=== PATIENT | male | born 1950 | race Caucasian/White ===

== ENCOUNTER → 2019-02-14 11:03 | Outpatient (CLI) | payer MEDICARE, SELFPAY ==
[2019-02-14 12:41] LABS: Add Manual Diff / Slide Review NO; Basophils Absolute Auto 100 /uL (0-100); Eosinophils Absolute Auto 300 /uL (0-450); Eosinophils Percent Auto 5.4 % (2-4); Hematocrit 44.8 % (41-53); Hemoglobin 14.8 g/dL (13.5-17.5); Lymphocytes Absolute Auto 1500 /uL (1100-4500); Lymphocytes Percent Auto 25.9 % (25-40); Mean Corpuscular Hemoglobin 29.4 PG (26-34); Mean Corpuscular Volume 89.2 fL (80-100); Monocytes Absolute Auto 500 /uL (0-900); Monocytes Percent Auto 9.1 % (3-14); Neutrophils Absolute Auto 3400 /uL (1500-7000); Neutrophils Percent Auto 58.6 % (50-75); Platelet Count 210 X10^3/uL (150-400); Red Blood Cell Count 5.02 X10^6/uL (4.5-5.9); Red Cell Distribution Width 14.6 % (11.6-14.8); White Blood Cell Count 5.8 X10^3/uL (4.5-11.0)
[2019-02-14 12:59] LABS: Alanine Aminotransferase 47 IU/L (21-72); Albumin 4.3 g/dL (3.5-5.0); Albumin Globulin Ratio 1.4 (1.0-2.8); Alkaline Phosphatase 88 U/L (38-126); Aspartate Aminotransferase 45 IU/L (17-59); Bilirubin Total 0.8 mg/dL (0.2-1.3); Blood Urea Nitrogen 25 mg/dL (9-20); Calcium 9.4 mg/dL (8.4-10.2); Carbon Dioxide 30 mmol/L (22-32); Chloride 105 mmol/L (98-107); Cholesterol 204 mg/dL (140-199); Estimated Glomerular Filt Rate > 60.0 mL/min (>60); Globulin 3.1 g/dL (1.7-4.1); Glucose 105 mg/dL (80-110); HDL Cholesterol 52 mg/dL (40-60); HEMOLYSIS 19 (0-50); LDL Cholesterol Calculated 133 mg/dL (<100); Potassium 4.5 mmol/L (3.4-5.1); Sodium 141 mmol/L (137-145); Total Protein 7.4 g/dL (6.3-8.2); Triglycerides 96 mg/dL (35-150)
[2019-02-14 13:23] LABS: Thyroid Stimulating Hormone 2.07 uIU/mL (0.47-4.68)
[2019-02-14 13:24] LABS: Prostate Specific Antigen Scrn 0.513 ng/mL (0.1-4.0)
== END ==
PROVIDERS: PCP Family Medicine; Visit Provider Family Medicine
DX: E78.2 Mixed hyperlipidemia (principal); Z12.5 Encounter for screening for malignant neoplasm of prostate
CPT/HCPCS: 36415; 80053; 80061; 84443; 85025; G0103

== ENCOUNTER → 2019-05-19 10:06 | Outpatient (CLI) | payer MEDICARE, SELFPAY ==
[2019-05-19 11:49] LABS: Cortisol Random 6.52 ug/dL
[2019-05-20 16:10] LABS: Adrenocorticotropic Hormone 15 pg/mL (6-50)
== END ==
PROVIDERS: PCP Family Medicine; Visit Provider Family Medicine
DX: R53.1 Weakness (principal)
CPT/HCPCS: 36415; 82024; 82533; 84403

== ENCOUNTER 2020-04-06 10:04 | Emergency (ER) | payer MEDICARE, BC, SELFPAY ==
[2020-04-06] VITALS (11 sets, daily range): BP systolic 144–152; BP diastolic 66–82; PULSE 69–110; RESP 14–28; TEMP 36.9; O2SAT 97–99; BMI 27.2
--- NOTE | 2020-04-06 10:40 | PC.NURSE ---
Pt had dental work 8 days ago,yesterday increased pain,followed up with dentist,told he needs a root canal and has a possible infection. 1500 yesterday pts left 1/2 of bottom lip became numb.
[2020-04-06 10:52] LABS: Add Manual Diff / Slide Review NO; Basophils Absolute Auto 0 /uL (0-100); Basophils Percent Auto 0.5 % (0-2); Eosinophils Absolute Auto 100 /uL (0-450); Eosinophils Percent Auto 0.7 % (2-4); Hematocrit 41.2 % (41-53); Hemoglobin 13.7 g/dL (13.5-17.5); Lymphocytes Absolute Auto 1100 /uL (1100-4500); Lymphocytes Percent Auto 12.1 % (25-40); Mean Corpuscular HGB Conc 33.2 % (30-36); Mean Corpuscular Hemoglobin 29.4 PG (26-34); Mean Corpuscular Volume 88.5 fL (80-100); Monocytes Absolute Auto 1200 /uL (0-900); Monocytes Percent Auto 13.3 % (3-14); Neutrophils Absolute Auto 6400 /uL (1500-7000); Neutrophils Percent Auto 73.4 % (50-75); Platelet Count 188 X10^3/uL (150-400); Red Blood Cell Count 4.65 X10^6/uL (4.5-5.9); Red Cell Distribution Width 14.6 % (11.6-14.8); White Blood Cell Count 8.7 X10^3/uL (4.5-11.0)
[2020-04-06 10:58] LABS: INR 1.1 (0.9-1.3); Prothrombin Time 12.4 SECONDS (10.1-12.7)
[2020-04-06 11:01] LABS: PTT Partial Thromboplastin Tim 28 SECONDS (26.4-36.2)
[2020-04-06 11:02] LABS: BUN Creatinine Ratio 23.4 (6-22); Blood Urea Nitrogen 22 mg/dL (9-20); Carbon Dioxide 22 mmol/L (22-32); Chloride 106 mmol/L (98-107); Creatine Kinase 173 U/L (55-170); Estimated Glomerular Filt Rate > 60.0 mL/min (>60); Glucose 131 mg/dL (80-110); HEMOLYSIS < 15 (0-50); Potassium 3.3 mmol/L (3.4-5.1); Sodium 136 mmol/L (137-145)
[2020-04-06 11:13] LABS: Troponin I < 0.012 ng/mL (0.01-0.034)
[2020-04-06 11:16] LABS: CKMB % Relative Index 1.5 % (1.5-5.0); Creatine Kinase MB 2.56 ng/mL (<2.37)
[2020-04-06 11:33] LABS: Thyroid Stimulating Hormone 2.55 uIU/mL (0.47-4.68)
--- NOTE | 2020-04-06 12:09 | ED_ITS ---
HPI - Dental/Oral General Chief complaint: Dental/Oral Stated complaint: HEAD PAIN,NUMBNESS ON LOWER LIP Time Seen by Provider: 04/06/20 10:50 Source: patient Mode of arrival: Ambulatory Limitations: no limitations History of Present Illness HPI Narrative: This is a pleasant 69-year-old male who comes emergency depa rtment with complaint of some facial numbness on the left. Patient states that he had a filling the tooth had broken. He went to the dental clinic at [facility] had evaluation they but a filling in but then he continued to have symptoms and they have recommended a root canal secondary to an infection they noted on xray imaging, he has not had the root canal yet. He has not appreciated any fevers, he is not appreciate any swelling. Yesterday he noticed some numbness of the cheek and lower jaw area. He also has noted that the pain in the lower jaw has now started to spread up towards the cheek and left ear. He has been in quite a bit of pain over the last several days. They have tried ibuprofen and Tylenol [id number] as well as heat for the area. And his states that she thought she appreciated some twisting or change to the facial movement on that area. He does have a prior history of stroke, he is on metoprolol, lisinopril and atorvastatin. He is not currently on any blood thinners. No history of diabetes. He has not had any changes with vision, no speech issues. He has had some headache. He has not any nausea vomiting or GI or new urinary symptoms. He has a remote history of cigar use, occasional alcohol and no illicit. Dr. Nguyen is his primary care. He is accompanied by his . Related Data Previous Rx's Medication Instructions Recorded atorvastatin 20 mg tablet 20 mg PO DAILY #90 tab 02/14/19 bupropion HCl 150 mg tablet,12 hr See Rx Instructions .ROUTE 02/14/19 sustained-release .COMPLEX #60 tablet metoprolol succinate 25 mg 25 mg PO BID #180 tab 02/14/19 tablet,extended release 24 hr oxycodone 5 mg PO Q6H PRN #10 tab 04/06/20 penicillin V potassium 500 mg PO QID #40 tab 04/06/20 Allergies Allergy/AdvReac Type Severity Reaction Status Date / Time No Known Drug Allergies Allergy Verified 04/06/20 10:22 Review of Systems Review of Systems ROS Unobtainable: All systems reviewed & are unremarkable except as noted in HPI and below Patient History Medical History Aphthous ulcer of tongue Cardiac arrhythmia Hearing loss Seasonal allergies Shoulder pain (~2011) Tinnitus Family History Father Stroke Heart disease Grandmother Dementia Mother Alzheimer's disease Social History Smoking Status: Former smoker Smoking Status: Former smoker alcohol intake frequency: holidays/special occasions only Substance Use Type: does not use Exam Narrative Exam Narrative: GEN: well nourished, well appearing male, alert and oriented x 3, patient appears to be in mild distress. HEENT: Atraumatic, pupils are equal round reactive to light, extraocular movements are intact, nares are clear, TMs are clear with no fluid, there is no conjunctival pallor. Throat is clear without any exudates, erythema, tonsillar enlargement or uvular deviation, patient does not have any appreciable facial droop, no dysarthria. He does not have any nystagmus. He does not have any obvious swelling. He has multiple fillings. There is a tooth missing in the area of pain but no obvious infection on exam. Patient is mildly tender over the lower jaw and just above. There is no warmth to the area. There is no fluctuance or induration. HEART: Regular rate and rhythm without murmur, clicks, rubs. LUNGS:Lungs clear to auscultation, no wheezes, rales, crackles, chest moves symmetrically ABD:bowel sounds normal, soft, non-tender, no guarding, rebound, rigidity, no masses noted, no hepatosplenomegaly MSCL: Non-tender, no muscle atrophy, muscles strength 5/5 upper and lower extremities, full range of motion, normal gait NEURO:CN 2-12 intact, sensation normal, reflexes 2/4 upper and lower extremities. finger nose finger test normal, heel garcia test normal Initial Vital Signs Initial Vital Signs: Vital Signs Blood Pressure 144/66 H 04/06/20 10:18 Scores GCS Madeline coma scale eye opening: Spontaneous [place] coma scale verbal response: Orientated [place] coma scale motor response: Obey commands Houston coma scale total score: 15 NIH Stroke Scale Level of Conciousness: Alert, keenly responsive Ask month/age: Answers both questions correctly. Open/close eyes, close hand: Performs both tasks correctly Best gaze horizontal: Normal Visual hu: No visual loss Facial palsy: Normal symetrical movement Left arm drift: No drift for full 10 sec Right arm drift: No drift for full 10 sec Left leg drift: No drift for full 5 sec Right leg drift: No drift for full 5 sec Limb ataxia: Absent Sensory on face/arms/legs: Normal, no sensory loss Best language: No aphasia, normal Dysarthria: Normal Extinction or inattention: No abnormality Total NIH Stroke scale score: 0 Course Orders Ordered: ED Orders 04/06/20 10:29 EKG-12 Lead Routine 04/06/20 10:34 Basic Metabolic Panel Stat Complete Blood Count AUTO DIFF Stat Magnesium Stat Partial Thromboplastin Time Stat Prothrombin Time INR Stat Thyroid Stimulating Hormone Stat Troponin & CK Cardiac Panel Stat 04/06/20 12:34 CT facial bones w con Stat 04/06/20 12:45 CT head/brain wo con Stat Discontinued Medications Sodium Chloride (Normal Saline 0.9%) 1,000 mls @ 500 mls/hr IV BOLUS ONE Stop: 04/06/20 14:33 Last Infusion: 04/06/20 13:50 Dose: 0 mls/hr Documented by: Admin: 04/06/20 12:47 Dose: 500 mls/hr Documented by: ALOK Ketorolac Tromethamine (Ketorolac 60 Mg/2 Ml Vial) 15 mg IV NOW ONE Stop: 04/06/20 12:35 Last Admin: 04/06/20 12:47 Dose: 15 mg Documented by: ALOK Potassium Chloride (Potassium Chloride 20 Meq/15 Ml Udc) 40 meq PO NOW ONE Stop: 04/06/20 12:12 Last Admin: 04/06/20 12:48 Dose: 40 meq Documented by: ALOK Vital Signs Vital signs: Vital Signs - 8 hr 04/06/20 11:30 04/06/20 12:00 04/06/20 12:14 Pulse Rate 74 77 78 Respiratory Rate 24 21 22 Blood Pressure 152/82 H Pulse Oximetry 97 98 98 04/06/20 12:30 04/06/20 13:03 04/06/20 13:30 Pulse Rate 79 110 H 80 Respiratory Rate 22 27 H Blood Pressure Pulse Oximetry 98 99 04/06/20 13:43 04/06/20 13:48 Pulse Rate 88 75 Respiratory Rate 25 H 28 H Blood Pressure 145/66 H Pulse Oximetry 99 MDM - Dental/Oral Lab Data Attestation: I reviewed the patient's lab results. Result diagrams: 04/06/20 10:34 04/06/20 10:34 Labs: Lab Results 04/06/20 04/06/20 04/06/20 Range/Units 10:34 10:34 10:34 WBC 8.7 (4.5-11.0) X10^3/uL RBC 4.65 (4.5-5.9) X10^6/uL Hgb 13.7 (13.5-17.5) g/dL Hct 41.2 (41-53) % MCV 88.5 (80-100) fL MCH 29.4 (26-34) PG MCHC 33.2 (30-36) % RDW 14.6 (11.6-14.8) % Plt Count 188 (150-400) X10^3/uL Neut % (Auto) 73.4 (50-75) % Lymph % (Auto) 12.1 L (25-40) % Camp % (Auto) 13.3 (3-14) % Eos % (Auto) 0.7 L (2-4) % Baso % (Auto) 0.5 (0-2) % Neut # (Auto) 6400 (3031-4867) /uL Lymph # (Auto) 1100 (8444-8575) /uL Camp # (Auto) 1200 H (0-900) /uL Eos # (Auto) 100 (0-450) /uL Baso # (Auto) 0 (0-100) /uL PT 12.4 (10.1-12.7) SECONDS INR 1.1 (0.9-1.3) APTT 28 (26.4-36.2) SECONDS Sodium 136 L (137-145) mmol/L Potassium 3.3 L (3.4-5.1) mmol/L Chloride 106 (98-107) mmol/L Carbon Dioxide 22 (22-32) mmol/L BUN 22 H (9-20) mg/dL Creatinine 0.94 (0.66-1.25) mg/dL Estimated GFR > 60.0 (>60) mL/min BUN/Creatinine Ratio 23.4 H (6-22) Glucose 131 H (80-110) mg/dL Calcium 9.0 (8.4-10.2) mg/dL Magnesium 2.0 (1.6-2.3) mg/dL Total Creatine Kinase 173 H (55-170) U/L CK-MB (CK-2) 2.56 H (<2.37) ng/mL CK-MB (CK-2) Rel Index 1.5 (1.5-5.0) % Troponin I < 0.012 (0.01-0.034) ng/mL TSH (0.47-4.68) uIU/mL 04/06/20 Range/Units 10:34 WBC (4.5-11.0) X10^3/uL RBC (4.5-5.9) X10^6/uL Hgb (13.5-17.5) g/dL Hct (41-53) % MCV (80-100) fL MCH (26-34) PG MCHC (30-36) % RDW (11.6-14.8) % Plt Count (150-400) X10^3/uL Neut % (Auto) (50-75) % Lymph % (Auto) (25-40) % Camp % (Auto) (3-14) % Eos % (Auto) (2-4) % Baso % (Auto) (0-2) % Neut # (Auto) (6618-2130) /uL Lymph # (Auto) (1519-2260) /uL Camp # (Auto) (0-900) /uL Eos # (Auto) (0-450) /uL Baso # (Auto) (0-100) /uL PT (10.1-12.7) SECONDS INR (0.9-1.3) APTT (26.4-36.2) SECONDS Sodium (137-145) mmol/L Potassium (3.4-5.1) mmol/L Chloride (98-107) mmol/L Carbon Dioxide (22-32) mmol/L BUN (9-20) mg/dL Creatinine (0.66-1.25) mg/dL Estimated GFR (>60) mL/min BUN/Creatinine Ratio (6-22) Glucose (80-110) mg/dL Calcium (8.4-10.2) mg/dL Magnesium (1.6-2.3) mg/dL Total Creatine Kinase (55-170) U/L CK-MB (CK-2) (<2.37) ng/mL CK-MB (CK-2) Rel Index (1.5-5.0) % Troponin I (0.01-0.034) ng/mL TSH 2.55 (0.47-4.68) uIU/mL Imaging Data CT scan - head: Radiologist's Impression: [address] [id number] Scan ReportSigned Patient: Dean Fonseca GMR#: [id number]: 1950cct:[id number]/Sex: 69 / MDate of Service: 04/06/20Loc: EDAccession Number: [id number] Procedure: CT head/brain wo con Ordering Provider: Nicolle Kyle D.O. PROCEDURE: CT HEAD/BRAIN WO CON INDICATIONS: numbness lower face TECHNIQUE: Noncontrast 4.5 mm thick angled axial sections acquired from the foramen magnum to the vertex, with coronal and sagittal reformats. For radiation dose reduction, the following was used: automated exposure control, adjustment of mA and/or kV according to patient size. COMPARISON: None. FINDINGS: Image quality: Excellent. CSF spaces: Basal cisterns are patent. No extra-axial fluid collections. Ventricles are normal in size and shape. Brain: No midline shift. No intracranial masses or hemorrhage. Chavez-white matter interface is normal. Skull and face: Calvarium and visualized facial bones are intact, without suspicious lesions. Sinuses: Visualized sinuses and mastoids are clear. IMPRESSION: No acute disease. Normal for age. Dictated by: Jin Bailon M.D. on 04/06/2020 at 13:06 Approved by: Jin Bailon M.D. on 04/06/2020 at 13:07 facial bones: Radiologist's Impression: Dean Fonseca 69 M [address] [id number] Scan ReportSigned Patient: Dean Fonseca GMR#: [id number]: 2Acct:[id number]/Sex: 69 / MDate of Service: 04/06/20Loc: EDAccession Number: [id number] Procedure: CT facial bones w con Ordering Provider: Nicolle Kyle D.O. PROCEDURE: CT FACIAL BONES W CON INDICATIONS: dental infection, no swelling but new numbness TECHNIQUE: After the administration of intravenous contrast, 2.5 mm axial sections acquired from the mid-neck to the frontal sinuses, with coronal and sagittal reformats. For radia tion dose reduction, the following was used: automated exposure control, adjustment of mA and/or kV according to patient size. COMPARISON: None. FINDINGS: Image quality: Excellent. Soft tissues: No edema, masses, or fluid collections. No enlarged lymph nodes. Vascular: Visualized vascular structures appear patent throughout. Bony vascular foramina and canals appear normal. Bones: Facial bones appear intact, without fractures, erosions, or destruction. Visualized portions of the skull base and auditory canals also appear normal. Sinuses: Paranasal sinuses are aerated without fluid levels, mucosal thickening, or mucoceles. Mastoid air cells are aerated. IMPRESSION: No enlarged lymph nodes seen, no abnormal soft tissue fluid collection is found. Please note that metal artifact from the mandibular and maxillary dental work reduces quality of visualization in exactly the area of current clinical concern. Pattern Luis dental films may be warranted depending on the clinical status. Dictated by: Jin Bailon M.D. on 04/06/2020 at 13:07 Approved by: Jin Bailon M.D. on 04/06/2020 at 13:09 ECG Data Attestation: I personally reviewed and interpreted this ECG as follows: Prior ECG tracings: available for review Interpretation: Sinus rhythm with frequent PVCs CEAs, left axis deviation. Rate of 76, MA 182, QRS of 134 and QTC of 486. Nonspecific change. Patient has prior EKG from July of 2016 which also has multiple frequent PVCs similar to today's pattern. MDM Narrative Medical decision making narrative: in with some numbness of his lip and pain on his lower jaw. Patient has had recent dental intervention and is is being scheduled for a root canal. He has tried Tylenol and ibuprofen with minimal improvement as well as Ayden intermittent. He has had a prior stroke so imaging was obtained of his facial bones as well as head CT, labs do show a mild hypokalemia and patient had this replaced in the emergency department. He has been told that he has a dental infection but that he was not recommended to put on antibiotics but just to have the root canal. NIH is 0 with no other neurologic changes I suspect this may be related to his recent intervention and patient was given a prescription for oxycodone, penicillin VK and plan to follow up with his dental team at [facility]. He was asked to return if he has any other neurologic symptoms or changes, Discharge Plan Departure Patient Disposition: Home Clinical Impression: Numbness of lip Activity Restrictions/Additional Instructions: Follow-up with your dental team for your root canal. Take pain medication as prescribed, this medication can make you sleepy do not drive, perform hazardous activities or make any major decisions while taking them. You may take tylenol with this medication. You may take up to 1000 mg every 8 hours as needed. Take antibiotics until gone. Prescription sent to [facility] in [place]. Return to the ER for fevers, severe headaches, new vision changes, new facial droop, difficulty with speech, new weakness numbness or tingling, increasing swelling of the face, swelling of the tongue or airway or other new or concernin g symptoms. Prescriptions: New penicillin V potassium 500 mg tablet 500 mg PO QID Qty: 40 RF: 0 oxycodone 5 mg tablet 5 mg PO Q6H PRN (Reason: pain) Qty: 10 RF: 0 No Action atorvastatin 20 mg tablet 20 mg PO DAILY Qty: 90 RF: 3 metoprolol succinate [Toprol XL] 25 mg tablet extended release 24 hr 25 mg PO BID Qty: 180 RF: 3 bupropion HCl 150 mg tablet sustained-release 12 hr See Rx Instructions .ROUTE .COMPLEX Qty: 60 RF: 5 Referrals: Wili Nguyen MD [Primary Care Provider] - Stand Alone Forms: Work Release Note
--- NOTE | 2020-04-06 12:34 | DI.CT.S_ITS ---
PROCEDURE: CT FACIAL BONES W CON INDICATIONS: dental infection, no swelling but new numbness TECHNIQUE: After the administration of intravenous contrast, 2.5 mm axial sections acquired from the mid-neck to the frontal sinuses, with coronal and sagittal reformats. For radiation dose reduction, the following was used: automated exposure control, adjustment of mA and/or kV according to patient size. COMPARISON: None. FINDINGS: Image quality: Excellent. Soft tissues: No edema, masses, or fluid collections. No enlarged lymph nodes. Vascular: Visualized vascular structures appear patent throughout. Bony vascular foramina and canals appear normal. Bones: Facial bones appear intact, without fractures, erosions, or destruction. Visualized portions of the skull base and auditory canals also appear normal. Sinuses: Paranasal sinuses are aerated without fluid levels, mucosal thickening, or mucoceles. Mastoid air cells are aerated. IMPRESSION: No enlarged lymph nodes seen, no abnormal soft tissue fluid collection is found. Please note that metal artifact from the mandibular and maxillary dental work reduces quality of visualization in exactly the area of current clinical concern. Pattern Luis dental films may be warranted depending on the clinical status. Dictated by: Jin Bailon M.D. on 04/06/2020 at 13:07 Approved by: Jin Bailon M.D. on 04/06/2020 at 13:09
--- NOTE | 2020-04-06 12:45 | DI.CT.S_ITS ---
PROCEDURE: CT HEAD/BRAIN WO CON INDICATIONS: numbness lower face TECHNIQUE: Noncontrast 4.5 mm thick angled axial sections acquired from the foramen magnum to the vertex, with coronal and sagittal reformats. For radiation dose reduction, the following was used: automated exposure control, adjustment of mA and/or kV according to patient size. COMPARISON: None. FINDINGS: Image quality: Excellent. CSF spaces: Basal cisterns are patent. No extra-axial fluid collections. Ventricles are normal in size and shape. Brain: No midline shift. No intracranial masses or hemorrhage. Chavez-white matter interface is normal. Skull and face: Calvarium and visualized facial bones are intact, without suspicious lesions. Sinuses: Visualized sinuses and mastoids are clear. IMPRESSION: No acute disease. Normal for age. Dictated by: Jin Bailon M.D. on 04/06/2020 at 13:06 Approved by: Jin Bailon M.D. on 04/06/2020 at 13:07
[2020-04-06] MEDS: SODIUM CHLORIDE 0.9% 1,000 ML 500 ML IV (12:47)
[2020-04-06] MEDS: KETOROLAC 60 MG/2 ML VIAL 15 MG IV (12:47)
[2020-04-06] MEDS: POTASSIUM CHLORIDE 20 MEQ/15 ML UDC 40 MEQ PO (12:48)
== END 2020-04-06 14:10 | disposition home or self-care (01) ==
PROVIDERS: Emergency Provider Emergency Medicine; PCP Family Medicine
DX: R20.0 Anesthesia of skin (principal); K08.89 Other specified disorders of teeth and supporting structures; E87.6 Hypokalemia; R51.9 Headache, unspecified
CPT/HCPCS: 36415; 70450; 70487; 80048; 82550; 82553; 83735; 84443; 84484; 85025; 85610; 85730; 93005; 96361; 96374; 99284; J1885; Q9967

== ENCOUNTER 2020-04-08 17:12 | Emergency (ER) | payer MEDICARE, BC, SELFPAY ==
[2020-04-08] VITALS (12 sets, daily range): BP systolic 133–166; BP diastolic 60–78; PULSE 39–86; RESP 15–29; TEMP 37.9; O2SAT 99–100; BMI 27.2
--- NOTE | 2020-04-08 21:37 | ED_ITS ---
HPI - Dental/Oral General Chief complaint: Dental/Oral Stated complaint: Infection in mouth, seen Sunday, not getting bett Time Seen by Provider: 04/08/20 21:36 Source: patient Mode of arrival: Ambulatory Limitations: no limitations History of Present Illness HPI Narrative: 61-year-old male former smoker with a history of hypertension and poor dental history presents with a chief complaint of some increased swelling and pain adjacent to tooth that received recent attention from a dentist. He had a cleaning and some fillings and other procedures at the [facility] about 10 days ago and was seen here for some pain and swelling and placed on amoxicillin a few days ago. He has increased swelling and some fluctuance adjacent to left lower molars. He has minimal facial swelling. He denies any difficulty swallowing and has had no systemic findings such as fever, chills nor nausea or vomiting. Teeth map: 1. Onset (ago): hour(s) Duration: constant Severity: moderate Relieving factors: nothing Exacerbating factors: chewing Context: history of dental caries and poor dental care Associated symptoms: gum swelling Treatment prior to arrival: other Related Data Previous Rx's Medication Instructions Recorded atorvastatin 20 mg tablet 20 mg PO DAILY #90 tab 02/14/19 bupropion HCl 150 mg tablet,12 hr See Rx Instructions .ROUTE 02/14/19 sustained-release .COMPLEX #60 tablet metoprolol succinate 25 mg 25 mg PO BID #180 tab 02/14/19 tablet,extended release 24 hr oxycodone 5 mg PO Q6H PRN #10 tab 04/06/20 penicillin V potassium 500 mg PO QID #40 tab 04/06/20 amoxicillin-pot clavulanate 1 tab PO Q12H #20 tab 04/08/20 [Augmentin] Allergies Allergy/AdvReac Type Severity Reaction Status Date / Time No Known Drug Allergies Allergy Verified 04/08/20 17:24 Review of Systems Constitutional Constitutional: Denies chills, Denies fatigue, Denies fever(s), Denies frequent falls, Denies lethargy and Denies weakness Eyes Eyes: Denies change in vision, Denies eye discharge, Denies irritation and Denies loss of vision ENT Ears, Nose, Mouth, and Throat: Denies change in voice, Reports dental pain, Denies dizziness, Reports facial pain, Denies neck pain, Denies sore throat and Denies throat swelling Cardiovascular Cardiovascular: Denies chest pain, Denies irregular heart rhythm, Denies lightheadedness, Denies palpitations, Denies dyspnea, Denies dyspnea on exertion and Denies orthopnea Respiratory Respiratory: Denies cough, Denies dyspnea, Denies dyspnea on exertion and Denies wheezing Gastrointestinal Gastrointestinal: Denies abdominal pain, Denies change in bowel habits, Denies diarrhea, Denies nausea and Denies vomiting Musculoskeletal Musculoskeletal: Denies neck pain and Denies numbness Integumentary/Breasts Skin/Breast: Denies pruritus, Denies erythema, Denies rash and Denies wounds Neurologic Neurologic: Denies behavioral changes, Denies confusion, Denies dizziness, Denies frequent falls, Denies loss of vision, Denies numbness and Denies weakness Psychiatric Psychiatric: Denies anxiety, Denies behavioral changes, Denies confusion, Denies depression, Denies homicidal ideation and Denies suicidal ideation Endocrine Endocrine: Denies fatigue, Denies flushing and Denies palpitations Hematologic/Lymphatic Hematologic/Lymphatic: Denies easy bruising Allergic/Immunologic Allergic/Immunologic: Denies urticaria, Denies throat swelling and Denies wheezing Patient History Medical History Aphthous ulcer of tongue Cardiac arrhythmia Hearing loss Seasonal allergies Shoulder pain (~2011) Tinnitus Family History Father Stroke Heart disease Grandmother Dementia Mother Alzheimer's disease Social History Smoking Status: Former smoker Smoking Status: Former smoker alcohol intake frequency: holidays/special occasions only Substance Use Type: does not use Exam Narrative Exam Narrative: GEN: AOx3 and in mild distress EYES: Pupils are equal, round, and reactive to light and accommodation. Extraoccular muscles are intact bilaterally. There is no subconjunctival hemorrhage or exudate. ENT: Minimal left mandibular swelling without overlying erythema or fluctuance. Intraoral examination nodes widespread dental decay and a mild amount of fluctuance lateral to teeth 20/21 CHEST: Lungs are clear to auscultation bilaterally and free of wheezes, rales, o r rhonchi. Heart rate is regular rhythm, there are no murmurs, clicks, rubs, or gallops. There is no chest wall tenderness. ABD: Abdomen is soft and nontender. There is no guarding or rebound. Bowel sounds are normal in all 4 quadrants. There is no mass or organomegaly. EXT: Full painless ROM of all extremities with no loss of sensation or strength. SKIN: Warm, pink, and dry. No erythema or rash Initial Vital Signs Initial Vital Signs: Vital Signs Temperature 100.2 F H 04/08/20 17:24 Pulse Rate 52 L 04/08/20 17:24 Respiratory Rate 15 04/08/20 17:24 Blood Pressure 152/67 H 04/08/20 17:24 Pulse Oximetry 99 04/08/20 17:24 Procedures Abscess I/D I&D #1: Site: oral Side (if applicable): left Local Anesthetic: bupivacaine 0.25% and with epi Amount of anesthesia used (mL): 4 Technique: incised with #11 blade Amount of fluid expressed (mL): 2 Irrigation: No Packing used?: none Complications: bleeding Course Orders Ordered: Discontinued Medications Hydrocodone Bitart/Acetaminophen (Hydrocodone/Acet 5/325 Prepack) 1 bottle MISC SEEINSTR ONE Stop: 04/08/20 23:09 Last Admin: 04/08/20 23:12 Dose: 1 bottle Documented by: YANETH Amoxicillin/Clavulanate Potassium (Amoxicillin/Clav 875/125 Mg) 1 tab PO NOW ONE Stop: 04/08/20 22:52 Last Admin: 04/08/20 23:12 Dose: 1 tab Documented by: YANETH Bupivacaine HCl/Epinephrine Bitart (Bupivacaine 0.5% W/ Epi (Pf) 30 Ml Vial) 5 ml SUBCUT NOW ONE Stop: 04/08/20 22:49 Last Admin: 04/08/20 23:12 Dose: 5 ml Documented by: YANETH Vital Signs Vital signs: Vital Signs - 8 hr 04/08/20 17:24 04/08/20 20:46 Temperature 100.2 F H Pulse Rate 52 L 39 L Respiratory Rate 15 Blood Pressure 152/67 H 159/63 H Pulse Oximetry 99 100 Discharge Plan Departure Patient Disposition: Home Clinical Impression: Abscess, dental Instructions: Tooth Abscess Activity Restrictions/Additional Instructions: *You have been diagnosed with [mild dental abscess] *What to do: *Take medications as directed: Stop taking the penicillin your given pre viously and get the prescription filled that I wrote you tonight for Augmentin *Follow up with your dental provider in 2-3 days, call for an appointment. Let them know you were seen in the Emergency Department and that we ask that you be seen in follow up *Return to ER if you should have any new, worsening or concerning symptoms, such as [increasing pain, fever over 101 F, significant facial swelling or other bothersome symptoms] Prescriptions: New amoxicillin-pot clavulanate [Augmentin] 875-125 mg tablet 1 tab PO Q12H Qty: 20 RF: 0 No Action atorvastatin 20 mg tablet 20 mg PO DAILY Qty: 90 RF: 3 metoprolol succinate [Toprol XL] 25 mg tablet extended release 24 hr 25 mg PO BID Qty: 180 RF: 3 bupropion HCl 150 mg tablet sustained-release 12 hr See Rx Instructions .ROUTE .COMPLEX Qty: 60 RF: 5 penicillin V potassium 500 mg tablet 500 mg PO QID Qty: 40 RF: 0 oxycodone 5 mg tablet 5 mg PO Q6H PRN (Reason: pain) Qty: 10 RF: 0 Referrals: Wili Nguyen MD [Primary Care Provider] -
[2020-04-08] MEDS: AMOXICILLIN/CLAV 875/125 MG 1 TAB PO (23:12)
[2020-04-08] MEDS: HYDROCODONE/ACET 5/325 PREPACK 1 BOTTLE MISC (23:12)
[2020-04-08] MEDS: BUPIVACAINE 0.5% W/ EPI (PF) 30 ML VIAL 5 ML SUBCUT (23:12)
== END 2020-04-08 23:20 | disposition home or self-care (01) ==
PROVIDERS: Emergency Provider Emergency Medicine; PCP Family Medicine
DX: K04.7 Periapical abscess without sinus (principal); R50.9 Fever, unspecified
CPT/HCPCS: 10060; 99281; 99283

== ENCOUNTER → 2020-07-06 14:57 | Outpatient (CLI) | payer MEDICARE, OTHER, SELFPAY ==
--- NOTE | 2020-07-06 15:01 | DI.ECHO.S_ITS ---
[facility]---------+ [facility] +---------+ : : [address] : : : : [id number] : : : : Phone: [phone] Echocardiogram Report + + :Name: RICHI GIBSON Study Date: 07/06/2020 Height: 70 in : :[facility] ReadingLocation: Weight: 184 lb : : Gender: Male BSA: 2.0 m2 : :: 1950 Age: 69 yrs BP: 131/85 mmHg: :Reason For Study: VENTRICULAR PREMATURE DEPOLARIZATION : :Ordering Physician: AMBERLY, : :NETTE Performed By: Edith Franklin : :Referring: NETTE SAWYER : + + Interpretation Summary 1) Normal left ventricular size with moderately reduced systolic function (EF 35-40%). 2) Normal right ventricular size and function. 3) There is mild to moderate mitral regurgitation. 4) No prior Echo available for comparison. Procedure: A two-dimensional transthoracic echocardiogram with color flow and Doppler was performed. The study quality was technically adequate. The patient had an echocardiogram, but there is no comparison study available. The patient had frequent PVCs during the exam. The heart rate ranged between 53-96 bpm during the study. Left Ventricle: The left ventricle is normal in size and wall thickness. The ejection fraction is estimated to be 35-40%. Left ventricular systolic function is moderately reduced. Septal motion is consistent with conduction abnormality. Right Ventricle: The right ventricle is normal in size and function. Atria: The left atrial size is normal. Right atrial size is normal. There is no Doppler evidence for an interatrial shunt. Mitral Valve: The mitral valve is normal in structure and function. There is mild to moderate mitral regurgitation. Aortic Valve: The aortic valve is trileaflet. The aortic valve opens well. There is no aortic valve stenosis. No aortic regurgitation is present. Tricuspid Valve: The tricuspid valve is normal in structure and function. There is trace tricuspid regurgitation. Pulmonary artery pressures cannot be estimated because of the lack of a measurable TR jet velocity but the IVC suggests a CVP of around 3 mmHg. Pulmonic Valve: The pulmonic valve leaflets are thin and pliable; valve motion is normal. There is mild pulmonic regurgitation. Great Vessels: The aortic root is normal size. The dimensions of the ascending aorta are normal. The IVC is of normal diameter and collapses greater than 50% with a sniff. This suggests a low right atrial pressure of 3 mm Hg. Pericardium/ Pleura There is no pericardial effusion. There is no pleural effusion. MMode/2D Measurements & Calculations LVIDd: 5.3 cm LVOT diam: 2.1 cm LVIDs: 4.2 cm Ao root diam: 3.1 cm FS: 20.1 % asc Aorta Diam: 3.2 cm EPSS: 1.6 cm Ao Arch Diam (Prox Trans): 2.7 cm IVSd: 1.1 cm LVPWd: 0.92 cm LV garcia. diameter/BSA (cm/m^2): 2.6 LV sys. diameter/BSA (cm/m^2): 2.1 LA A2 area: 22.2 cm2 RA long axis: 5.5 cm LA A4 area: 20.3 cm2 RA area: 16.4 cm2 LA length (vol): 6.1 cm RA vol: 41.4 ml LA vol: 63.0 ml RA : 20.5 ml/m2 LA vol index: 31.3 ml/m2 IVC diam: 1.3 cm RVD1 (basal): 2.8 cm TAPSE: 2.6 cm Doppler Measurements & Calculations Ao V2 max: 111.0 cm/sec LVOT Max Cornelio: 90.9 cm/sec Ao V2 mean: 80.3 cm/sec LV V1 max P.3 mmHg Ao max P.9 mmHg LV V1 VTI: 19.4 cm Ao mean P.8 mmHg CHRIS(I,D): 3.0 cm2 Ao V2 VTI: 23.5 cm CHRIS(V,D): 2.9 cm2 sev ratio: 0.82 CHRIS indexed to BSA (cm^2/m^2): 1.5 MV E max cornelio: 73.2 cm/sec PA V2 max: 56.8 cm/sec MV A max cornelio: 93.3 cm/sec PA V2 mean: 40.7 cm/sec MV E/A: 0.79 PA mean P.75 mmHg Med Peak E' Cornelio: 6.5 cm/sec PA pr(Accel): 39.6 mmHg E/E' med: 11.3 Lat Peak E' Cornelio: 8.9 cm/sec E/E' lat: 8.3 E/e' average: 9.8 MV dec time: 0.24 sec SV(LVOT): 69.7 ml Reading Physician:04:53 PM
== END ==
PROVIDERS: PCP Family Medicine; Referring Provider Internal Medicine Cardiovascular Disease; Visit Provider Internal Medicine Cardiovascular Disease
DX: I34.0 Nonrheumatic mitral (valve) insufficiency (principal); I37.1 Nonrheumatic pulmonary valve insufficiency; I49.3 Ventricular premature depolarization
CPT/HCPCS: 93306

== ENCOUNTER 2021-01-31 17:47 | Emergency (ER) | payer MEDICARE, BC, SELFPAY ==
[2021-01-31 18:18] VITALS: BP 159/81; PULSE 48; RESP 17; TEMP 37.5; O2SAT 97; BMI 25.8
--- NOTE | 2021-01-31 20:04 | DI.RAD.S_ITS ---
PROCEDURE: XR CHEST 2V INDICATIONS: covid+, cough TECHNIQUE: 2 views of the chest were acquired. COMPARISON: None. FINDINGS: Surgical changes and devices: None. Lungs and pleura: Patchy bilateral airspace opacities. No pleural effusions or pneumothorax. Mediastinum: Mediastinal contours are normal. Heart size is normal. Bones and chest wall: No suspicious bony abnormalities. Soft tissues appear unremarkable. IMPRESSION: Patchy bilateral airspace opacities, non-specific but consistent with the provided history of COVID-19 pneumonia. Dictated by: Jah Flores M.D. on 01/31/2021 at 20:46 Approved by: Jah Flores M.D. on 01/31/2021 at 20:47
--- NOTE | 2021-01-31 20:37 | ED_ITS ---
HPI - URI/Sore Throat <Marjorie Gautam PA-C - Last Filed: 01/31/21 21:02> General Chief Complaint: Upper Respiratory Symptoms Stated Complaint: COVID+, Spot on Lung Time Seen by Provider: 01/31/21 19:31 Source: patient Mode of arrival: Ambulatory Limitations: no limitations History of Present Illness HPI Narrative: 70-year-old male with past medical history cardiac arrhythmia, hyperlipidemia, hypertension, cervical stenosis of the spinal canal presents to the ED with a cough and COVID positive test. Patient states he was diagnosed COVID positive on 01/18/2021. Since then he has had a lingering cough for which he went to an urgent care today, where he was prescribed antibiotics for a pneumonia the distal on the chest x-ray. Patient and his decided to come into the ED for further workup. Patient denies fever, chills, chest pain, shortness of breath, nausea, dizziness, syncope. Endorses a couple episodes of diarrhea, 1 episode of vomiting yesterday. Patient is vaccinated for COVID-19 Related Data Previous Rx's Medication Instructions Recorded atorvastatin 20 mg tablet 20 mg PO DAILY #90 tab 02/14/19 metoprolol succinate 25 mg 25 mg PO BID #180 tab 02/14/19 tablet,extended release 24 hr (Toprol XL) oxycodone 5 mg tablet 5 mg PO Q6H PRN #10 tab 04/06/20 bupropion HCl 150 mg tablet,12 hr See Rx Instructions .ROUTE 05/19/20 sustained-release .COMPLEX #180 tab Allergies Allergy/AdvReac Type Severity Reaction Status Date / Time No Known Drug Allergies Allergy Verified 01/31/21 18:18 Review of Systems <Marjorie Gautam PA-C - Last Filed: 01/31/21 21:02> Constitutional Constitutional: Denies chills, Denies fatigue, Denies fever(s), Denies frequent falls, Denies lethargy and Denies weakness Eyes Eyes: Denies change in vision, Denies eye discharge, Denies irritation and Denies loss of vision ENT Ears, Nose, Mouth, and Throat: Denies change in voice, Denies dizziness, Denies neck pain, Denies sore throat and Denies throat swelling Cardiovascular Cardiovascular: Denies chest pain, Denies irregular heart rhythm, Denies lightheadedness, Denies palpitations, Denies dyspnea, Denies dyspnea on exertion and Denies orthopnea Respiratory Respiratory: Reports cough, Denies dyspnea, Denies dyspnea on exertion and Denies wheezing Gastrointestinal Gastrointestinal: Denies abdominal pain, Denies change in bowel habits, Reports diarrhea, Denies nausea and Reports vomiting Musculoskeletal Musculoskeletal: Denies neck pain and Denies numbness Integumentary/Breasts Skin/Breast: Denies pruritus, Denies erythema, Denies rash and Denies wounds Neurologic Neurologic: Denies behavioral changes, Denies confusion, Denies dizziness, Denies frequent falls, Denies loss of vision, Denies numbness and Denies weakness Psychiatric Psychiatric: Denies anxiety, Denies behavioral changes, Denies confusion, Denies depression, Denies homicidal ideation and Denies suicidal ideation Endocrine Endocrine: Denies fatigue, Denies flushing and Denies palpitations Hematologic/Lymphatic Hematologic/Lymphatic: Denies easy bruising Allergic/Immunologic Allergic/Immunologic: Denies urticaria, Denies throat swelling and Denies wheezing Patient History <Marjorie Gautam PA-C - Last Filed: 01/31/21 21:02> Medical History Aphthous ulcer of tongue Cardiac arrhythmia Cognitive and behavioral changes Hearing loss Seasonal allergies Shoulder pain (~2011) Tinnitus Family History Father Stroke Heart disease Grandmother Dementia Mother Alzheimer's disease Social History Smoking Status: Former smoker Smoking Status: Former smoker alcohol intake frequency: holidays/special occasions only Substance Use Type: does not use Exam <Marjorie Gautam PA-C - Last Filed: 01/31/21 21:02> Narrative Exam Narrative: Benign physical exam Initial Vital Signs Initial Vital Signs: Vital Signs Temperature 99.5 F 01/31/21 18:18 Pulse Rate 48 L 01/31/21 18:18 Respiratory Rate 17 01/31/21 18:18 Blood Pressure 159/81 H 01/31/21 18:18 Pulse Oximetry 97 01/31/21 18:18 Const General: cooperative HENMT Head: normocephalic and atraumatic Ears: external ears normal and TM's normal bilaterally Nose: external nose normal and No nasal discharge Face and sinus: sinuses nontender, face symmetric, no sinus tenderness and No dry mucous membranes Mouth: oral mucosae normal and moist mucous membranes Teeth and gingiva: dentition normal Throat: tonsils normal and uvula midline Eyes General: appearance normal, both eyes and all related structures Eyelids: eyelids normal Conjunctivae: conjunctivae normal Sclera: sclerae normal Pupils: PERRL EOM: EOM intact bilaterally Neck Neck: normal visual inspection, trachea midline, No lymphadenopathy, No midline deformity and No JVD Lymphatic: No lymphedema Chest Chest: normal inspection of the chest Resp Effort & Inspection: normal respiratory effort, able to speak in complete sentences, no respiratory distress and no use of accessory muscles Auscultation: clear to auscultation bilaterally, no rales, no rhonchi and no wheezes Cardio Rate: regular rate Rhythm: regular rhythm Heart Sounds: no click, no gallops, no murmurs and no rubs Pulses: normal peripheral pulses GI Inspection: non-distended Palpation: soft, no hepatosplenomegaly, No guarding, No pulsatile mass and No tender Auscultation: normal bowel sounds Back/Spine/Pelvis Back: No CVA tenderness Cervical Spine: cervical ROM normal and No pain with cervical ROM Thoracic/Lumbar Spine: thoracic and lumbar spine normal to inspection Skin General: no rashes or lesions noted, No jaundice and No petechiae Neuro General: patient alert, patient oriented x3, gait normal and no focal motor deficits Speech: speech normal Extrem General: full ROM, no clubbing, cyanosis or edema, no pedal edema and no calf tenderness Psych Appearance: well kempt Mental Status: mental status grossly normal Attitude: cooperative Thought Content: normal and suicidality Judgment: judgment good <Negra Hernández MD - Last Filed: 02/01/21 06:10> Initial Vital Signs Initial Vital Signs: Vital Signs Temperature 99.5 F 01/31/21 18:18 Pulse Rate 48 L 01/31/21 18:18 Respiratory Rate 17 01/31/21 18:18 Blood Pressure 159/81 H 01/31/21 18:18 Pulse Oximetry 97 01/31/21 18:18 Course <Marjorie Gautam PA-C - Last Filed: 01/31/21 21:02> Course Course Narrative: Patient is stable in the ED, his PO2 98% on room air. EKG shows PVCs. With discharge home with ED return precautions. Orders Ordered: ED Orders 01/31/21 19:54 EKG-12 Lead Stat 01/31/21 20:04 XR chest 2V Stat Vital Signs Vital signs: Vital Signs - 8 hr 01/31/21 18:18 Temperature 99.5 F Pulse Rate 48 L Respiratory Rate 17 Blood Pressure 159/81 H Pulse Oximetry 97 <Negra Hernández MD - Last Filed: 02/01/21 06:10> Orders Ordered: ED Orders 01/31/21 19:54 EKG-12 Lead Stat 01/31/21 20:04 XR chest 2V Stat Vital Signs Vital signs: Vital Signs - 8 hr 01/31/21 18:18 Temperature 99.5 F Pulse Rate 48 L Respiratory Rate 17 Blood Pressure 159/81 H Pulse Oximetry 97 MDM - URI/Sore Throat <Marjorie Gautam PA-C - Last Filed: 01/31/21 21:02> Imaging Data Chest x-ray: Radiologist's Impression: PROCEDURE:? XR CHEST 2V ? INDICATIONS:? covid+, cough ? TECHNIQUE:? 2 views of the chest were acquired.? ? COMPARISON:? None. ? FINDINGS:? ? Surgical changes and devices:? None.? ? Lungs and pleura:? Patchy bilateral airspace opacities.? No pleural effusions or pneumothorax.? ? Mediastinum:? Mediastinal contours are normal.? Heart size is normal.? ? Bones and chest wall:? No suspicious bony abnormalities.? Soft tissues appear unremarkable.? ? IMPRESSION:? Patchy bilateral airspace opacities, non-specific but consistent with the provided history of COVID-19 pneumonia. ? ? Dictated by: Jah Flores M.D. on 01/31/2021 at 20:46 ? ? Approved by: Jah Flores M.D. on 01/31/2021 at 20:47 ? ECG Data Interpretation: PVCs, no ST-T changes. MDM Narrative Medical decision making narrative: 70-year-old male with past medical history cardiac arrhythmia, hyperlipidemia, hypertension, cervical stenosis of the spinal canal presents to the ED with a cough and COVID positive test. Concern for COVID-19 infection versus asymptomatic bradycardia. Will obtain chest x- ray, EKG. Discharge Plan Departure Patient Disposition: Home Clinical Impression: COVID-19 Instructions: DI for COVID-19 (Suspected or Confirmed ), Coronavirus Disease 2019, Can COVID-19 be prevented? Activity Restrictions/Additional Instructions: You were evaluated in the ED today for COVID-19 infection. Your test from 01/18/2021 was positive for COVID-19. Today in the ED you vital signs were stable your oxygen saturation is 98% on room air. Your chest x-ray shows some patchy opacities due to COVID infection, however at this time antibiotics are not indicated. Return to the ED if you experience worsening shortness of breath, chest pain. Prescriptions: No Action bupropion HCl 150 mg tablet sustained-release 12 hr See Rx Instructions .ROUTE .COMPLEX Qty: 180 RF: 0 atorvastatin 20 mg tablet 20 mg PO DAILY Qty: 90 RF: 3 metoprolol succinate [Toprol XL] 25 mg tablet extended release 24 hr 25 mg PO BID Qty: 180 RF: 3 oxycodone 5 mg tablet 5 mg PO Q6H PRN (Reason: pain) Qty: 10 RF: 0 Referrals: Wil Young DO [Primary Care Provider] - <Negra Hernández MD - Last Filed: 02/01/21 06:10> Cosign ED Attending Cosignature Attestation: I was immediately available in the department for consultation throughout this patient's visit. I agree with documentation as above. Negra Hernández MD
[2021-01-31 21:24] VITALS: BP 165/68; PULSE 68; RESP 18; O2SAT 97
== END 2021-01-31 21:24 | disposition home or self-care (01) ==
PROVIDERS: Emergency Provider Student in an Organized Health Care Education/Training Program; PCP Family Medicine
DX: U07.1 COVID-19 (principal); R05 Cough; R07.9 Chest pain, unspecified
CPT/HCPCS: 71046; 93005; 93010; 99282; 99284

== ENCOUNTER 2021-09-11 15:08 | Observation (INO) | payer MEDICARE, BC, SELFPAY ==
[2021-09-11] VITALS (15 sets, daily range): BP systolic 109–143; BP diastolic 44–80; PULSE 39–109; RESP 14–36; TEMP 36.7–37.1; O2SAT 96–100; BMI 27.8; BMI 26.7
--- NOTE | 2021-09-11 15:24 | DI.RAD.S_ITS ---
PROCEDURE: XR CHEST 1V INDICATIONS: chest pain TECHNIQUE: One view of the chest was acquired. COMPARISON: [facility], CR, XR CHEST 2V, 01/31/2021, 20:03. FINDINGS: Surgical changes and devices: None. Lungs and pleura: Minimal right basilar atelectasis and or infiltrate.. Left lung and both pleural spaces are clear. Mediastinum: Mediastinal contours appear normal. Heart size is normal. Bones and chest wall: No suspicious bony lesions. Overlying soft tissues appear unremarkable. IMPRESSION: Minimal right basilar atelectasis and or infiltrate Approved by: Karel Clark M.D. on 09/11/2021 at 16:02
[2021-09-11 15:46] LABS: Add Manual Diff / Slide Review NO; Basophils Absolute Auto 100 /uL (0-100); Basophils Percent Auto 0.6 % (0-2); Eosinophils Absolute Auto 100 /uL (0-450); Eosinophils Percent Auto 0.7 % (2-4); Hematocrit 40.2 % (41-53); Hemoglobin 13.7 g/dL (13.5-17.5); Lymphocytes Absolute Auto 1000 /uL (1100-4500); Lymphocytes Percent Auto 10.9 % (25-40); Mean Corpuscular Hemoglobin 29.3 PG (26-34); Mean Corpuscular Volume 86.1 fL (80-100); Monocytes Absolute Auto 700 /uL (0-900); Monocytes Percent Auto 7.1 % (3-14); Neutrophils Absolute Auto 7600 /uL (1500-7000); Neutrophils Percent Auto 80.7 % (50-75); Platelet Count 195 X10^3/uL (150-400); Red Blood Cell Count 4.67 X10^6/uL (4.5-5.9); Red Cell Distribution Width 14.8 % (11.6-14.8); White Blood Cell Count 9.5 X10^3/uL (4.5-11.0)
--- NOTE | 2021-09-11 15:48 | ED.CHESTPAIN ---
HPI - Chest Pain <Chitra Lloyd DO - Last Filed: 09/12/21 18:46> General Chief Complaint: Chest Pain Stated Complaint: Chills, headache, chest pain, Time Seen by Provider: 09/11/21 15:37 Source: patient Mode of arrival: Ambulatory Limitations: no limitations History of Present Illness HPI narrative: Patient is a 70-year-old male with history of atrial fibrillation and ablation, presenting in today with chest discomfort. He says he noted he had pain every time he took a breath in. He does not feel short of breath in fact he was able to go up and down 18 steps without any difficulty a couple of times. He denies any cough or fever. He has some minimal epigastric discomfort. He denies any dizziness or lightheadedness no palpitations although he is noted to have sinus arrhythmia on the monitor. He says he just does not feel quite right. Related Data Previous Rx's Medication Instructions Recorded metoprolol succinate 25 mg 25 mg PO BID #180 tab 02/14/19 tablet,extended release 24 hr (Toprol XL) oxycodone 5 mg tablet 5 mg PO Q6H PRN #10 tab 04/06/20 atorvastatin 20 mg tablet 20 mg PO DAILY #90 tab 05/23/21 bupropion HCl 150 mg tablet,12 hr 150 mg PO DAILY #90 tab 07/25/21 sustained-release colchicine 0.6 mg tablet 0.6 mg PO DAILY 90 Days #180 tab 09/12/21 ibuprofen 400 mg tablet 800 mg PO Q8HR 7 Days #21 tab 09/12/21 Allergies Allergy/AdvReac Type Severity Reaction Status Date / Time No Known Drug Allergies Allergy Verified 09/11/21 15:26 Review of Systems <Chitra Lloyd DO - Last Filed: 09/12/21 18:46> Review of Systems Narrative: GENERAL: Denies chills, fatigue, malaise, fever, sweats, travel HEENT: Denies sinus pain, ear pain, sore throat, difficulty swallowing, neck pain RESPIRATORY: Denies dyspnea, cough, wheezing, hemoptysis, sputum. CARDIOVASCULAR: See HPI GASTROINTESTINAL: Denies nausea, vomiting, abdominal pain, diarrhea, constipation, melena. : Denies dysuria, frequency, incontinence, hematuria, urinary retention, flank pain. MUSCULOSKELETAL: Denies weakness, joint pain, or bony pain SKIN: No rash, no erythema, no pruritus NEUROLOGIC: Denies weakness, dizziness, headache, numbness, change in speech, confusion PSYCHIATRIC: No concerning psychosocial issues. 12 point review of systems is negative except for those stated above and HPI Patient History <Chitra Lloyd DO - Last Filed: 09/12/21 18:46> Medical History Aphthous ulcer of tongue Cardiac arrhythmia Cognitive and behavioral changes Hearing loss Seasonal allergies Shoulder pain (~2011) Tinnitus Family History Father Stroke Heart disease Grandmother Dementia Mother Alzheimer's disease Social History household members: spouse Smoking Status: Former smoker Smoking Status: Former smoker alcohol intake frequency: holidays/special occasions only Substance Use Type: does not use Exam <Chitra Lloyd DO - Last Filed: 09/12/21 18:46> Initial Vital Signs Initial Vital Signs: Vital Signs Temperature 98.8 F 09/11/21 15:10 Pulse Rate 78 09/11/21 15:10 Respiratory Rate 20 09/11/21 15:10 Blood Pressure 139/63 09/11/21 15:10 Pulse Oximetry 99 09/11/21 15:10 GENERAL: Alert well-appearing 70 male and in no acute distress. HEENT: Head atraumatic,EOMI, pupils reactive, face symmetric, moist mucous membranes CARDIOVASCULAR: Regular rate and rhythm without murmurs, rubs or gallops. RESPIRATORY: Breath sounds equal bilaterally, no wheezes rales or rhonchi. ABDOMEN: Soft, nontender. Normoactive bowel sounds all 4 quadrants. No guarding or rebound. EXTREMITIES: Normal range of motion, no clubbing or edema. Neurovascularly intact NEUROLOGICAL: Alert and oriented x4.Normal gait and speech. SKIN: Warm, dry, no laceration, no petechiae, no rashes or lesions. <Ankur Allen DO - Last Filed: 09/11/21 19:26> Initial Vital Signs Initial Vital Signs: Vital Signs Temperature 98.8 F 09/11/21 15:10 Pulse Rate 78 09/11/21 15:10 Respiratory Rate 20 09/11/21 15:10 Blood Pressure 139/63 09/11/21 15:10 Pulse Oximetry 99 09/11/21 15:10 Scores <Chitra Lloyd DO - Last Filed: 09/12/21 18:46> CHADS-VASc Congestive heart failure: no Hypertension: no Age 75 years or older: no Diabetes mellitus: no Stroke, TIA, or TE: no Vascular disease: no Age 65 to 74 years: yes Sex category (female): Male CHADS-VASc Score: 1 <Ankur Allen DO - Last Filed: 09/11/21 19:26> CHADS-VASc CHADS-VASc Score: 1 Course <Chitra Lloyd DO - Last Filed: 09/12/21 18:46> Orders Ordered: Discontinued Medications Acetaminophen (Acetaminophen 325 Mg Tablet) 650 mg PO Q6HR PRN PRN Reason: pain Atorvastatin Calcium (Atorvastatin 20 Mg Tablet) 20 mg PO DAILY [facility] Last Admin: 09/12/21 08:34 Dose: 20 mg Documented by: CHEL Bupropion HCl (Bupropion Sr 150 Mg Tab) 150 mg PO DAILY [facility] Last Admin: 09/12/21 08:42 Dose: Not Given Documented by: CHEL Colchicine (Colchicine 0.6 Mg Tablet) 0.6 mg PO NOW ONE Stop: 09/12/21 13:09 Last Admin: 09/12/21 13:50 Dose: 0.6 mg Documented by: MANUEL Enoxaparin Sodium (Enoxaparin 40 Mg/0.4 Ml Syringe) 40 mg SUBCUT DAILY [facility] Last Admin: 09/12/21 13:49 Dose: Not Given Documented by: MANUEL Ibuprofen (Ibuprofen 400 Mg Tablet) 800 mg PO Q8HR [facility] Last Admin: 09/12/21 05:50 Dose: 800 mg Documented by: Admin: 09/11/21 21:26 Dose: 800 mg Documented by: CTRANSELMO Ketorolac Tromethamine (Ketorolac 30 Mg/Ml Vial) 15 mg IV NOW ONE Stop: 09/11/21 16:00 Last Admin: 09/11/21 16:11 Dose: 15 mg Documented by: OSCAR Metoprolol Succinate (Metoprolol Er 25 Mg Tablet) 25 mg PO BID [facility] Last Admin: 09/12/21 08:39 Dose: 25 mg Documented by: Admin: 09/11/21 21:26 Dose: 25 mg Documented by: SESAR Ondansetron HCl (Ondansetron 4 Mg/2 Ml Inj) 4 mg IV Q8HR PRN PRN Reason: Nausea And Vomiting Potassium Chloride (Potassium Chloride 20 Meq Tab) 40 meq PO NOW ONE Stop: 09/12/21 09:14 Last Admin: 09/12/21 13:50 Dose: 40 meq Documented by: MANUEL Sodium Chloride (Sodium Chloride 0.9% Flush) 10 ml IV PRN PRN PRN Reason: Flush Sodium Chloride (Sodium Chloride 0.9% Flush) 10 ml IV BID [facility] Last Admin: 09/12/21 08:34 Dose: 10 ml Documented by: CHEL Vital Signs Vital signs: Vital Signs - 8 hr 09/11/21 15:10 09/11/21 15:38 09/11/21 16:00 Temperature 98.8 F Pulse Rate 78 79 75 Respiratory Rate 20 36 H 29 H Blood Pressure 139/63 143/63 H Pulse Oximetry 99 97 96 09/11/21 16:30 09/11/21 17:00 09/11/21 17:01 Temperature Pulse Rate 86 106 H 109 H Respiratory Rate 27 H 20 22 Blood Pressure 139/80 113/53 L Pulse Oximetry 96 96 96 09/11/21 17:30 Temperature Pulse Rate 106 H Respiratory Rate 28 H Blood Pressure 114/58 L Pulse Oximetry 97 <Ankur Allen DO - Last Filed: 09/11/21 19:26> Orders Ordered: Discontinued Medications Acetaminophen (Acetaminophen 325 Mg Tablet) 650 mg PO Q6HR PRN PRN Reason: pain Atorvastatin Calcium (Atorvastatin 20 Mg Tablet) 20 mg PO DAILY [facility] Last Admin: 09/12/21 08:34 Dose: 20 mg Documented by: CHEL Bupropion HCl (Bupropion Sr 150 Mg Tab) 150 mg PO DAILY [facility] Last Admin: 09/12/21 08:42 Dose: Not Given Documented by: CHEL Colchicine (Colchicine 0.6 Mg Tablet) 0.6 mg PO NOW ONE Stop: 09/12/21 13:09 Last Admin: 09/12/21 13:50 Dose: 0.6 mg Documented by: MANUEL Enoxaparin Sodium (Enoxaparin 40 Mg/0.4 Ml Syringe) 40 mg SUBCUT DAILY [facility] Last Admin: 09/12/21 13:49 Dose: Not Given Documented by: MANUEL Ibuprofen (Ibuprofen 400 Mg Tablet) 800 mg PO Q8HR [facility] Last Admin: 09/12/21 05:50 Dose: 800 mg Documented by: Admin: 09/11/21 21:26 Dose: 800 mg Documented by: SESAR Ketorolac Tromethamine (Ketorolac 30 Mg/Ml Vial) 15 mg IV NOW ONE Stop: 09/11/21 16:00 Last Admin: 09/11/21 16:11 Dose: 15 mg Documented by: OSCAR Metoprolol Succinate (Metoprolol Er 25 Mg Tablet) 25 mg PO BID [facility] Last Admin: 09/12/21 08:39 Dose: 25 mg Documented by: Admin: 09/11/21 21:26 Dose: 25 mg Documented by: SESAR Ondansetron HCl (Ondansetron 4 Mg/2 Ml Inj) 4 mg IV Q8HR PRN PRN Reason: Nausea And Vomiting Potassium Chloride (Potassium Chloride 20 Meq Tab) 40 meq PO NOW ONE Stop: 09/12/21 09:14 Last Admin: 09/12/21 13:50 Dose: 40 meq Documented by: MANUEL Sodium Chloride (Sodium Chloride 0.9% Flush) 10 ml IV PRN PRN PRN Reason: Flush Sodium Chloride (Sodium Chloride 0.9% Flush) 10 ml IV BID [facility] Last Admin: 09/12/21 08:34 Dose: 10 ml Documented by: CHEL Vital Signs Vital signs: Vital Signs - 8 hr 09/11/21 15:10 09/11/21 15:38 09/11/21 16:00 Temperature 98.8 F Pulse Rate 78 79 75 Respiratory Rate 20 36 H 29 H Blood Pressure 139/63 143/63 H Pulse Oximetry 99 97 96 09/11/21 16:30 09/11/21 17:00 09/11/21 17:01 Temperature Pulse Rate 86 106 H 109 H Respiratory Rate 27 H 20 22 Blood Pressure 139/80 113/53 L Pulse Oximetry 96 96 96 09/11/21 17:30 Temperature Pulse Rate 106 H Respiratory Rate 28 H Blood Pressure 114/58 L Pulse Oximetry 97 MDM - Chest Pain <Chitra Lloyd DO - Last Filed: 09/12/21 18:46> Lab Data Result diagrams: 09/12/21 04:50 09/12/21 04:50 Labs: Lab Results 09/11/21 09/11/21 09/11/21 Range/Units 15:33 15:33 15:33 WBC 9.5 (4.5-11.0) X10^3/uL RBC 4.67 (4.5-5.9) X10^6/uL Hgb 13.7 (13.5-17.5) g/dL Hct 40.2 L (41-53) % MCV 86.1 (80-100) fL MCH 29.3 (26-34) PG MCHC 34.0 (30-36) % RDW 14.8 (11.6-14.8) % Plt Count 195 (150-400) X10^3/uL Neut % (Auto) 80.7 H (50-75) % Lymph % (Auto) 10.9 L (25-40) % [place] % (Auto) 7.1 (3-14) % Eos % (Auto) 0.7 L (2-4) % Baso % (Auto) 0.6 (0-2) % Neut # (Auto) 7600 H (0819-0480) /uL Lymph # (Auto) 1000 L (4243-7284) /uL [place] # (Auto) 700 (0-900) /uL Eos # (Auto) 100 (0-450) /uL Baso # (Auto) 100 (0-100) /uL D-Dimer < 200 (<230) ng/mL Sodium 139 (137-145) mmol/L Potassium 4.0 (3.4-5.1) mmol/L Chloride 106 (98-107) mmol/L Carbon Dioxide 27 (22-32) mmol/L BUN 27 H (9-20) mg/dL Creatinine 1.09 (0.66-1.25) mg/dL Estimated GFR > 60 (>60) mL/min BUN/Creatinine Ratio 24.8 H (6-22) Glucose 152 H (80-110) mg/dL Calcium 8.9 (8.4-10.2) mg/dL Magnesium 1.8 (1.6-2.3) mg/dL Total Bilirubin 0.6 (0.2-1.3) mg/dL AST 38 (17-59) IU/L ALT 29 (<50) IU/L Alkaline Phosphatase 82 (38-126) U/L Total Creatine Kinase 239 H (55-170) U/L CK-MB (CK-2) 2.36 (<2.37) ng/mL CK-MB (CK-2) Rel Index 1.0 L (1.5-5.0) % Troponin I < 0.012 (0.01-0.034) ng/mL NT-Pro-B Natriuret Pep (<125) pg/mL Total Protein 7.2 (6.3-8.2) g/dL Albumin 4.0 (3.5-5.0) g/dL Globulin 3.2 (1.7-4.1) g/dL Albumin/Globulin Ratio 1.3 (1.0-2.8) Lipase 36 (23-300) U/L 09/11/21 09/11/21 Range/Units 17:06 17:06 WBC (4.5-11.0) X10^3/uL RBC (4.5-5.9) X10^6/uL Hgb (13.5-17.5) g/dL Hct (41-53) % MCV (80-100) fL MCH (26-34) PG MCHC (30-36) % RDW (11.6-14.8) % Plt Count (150-400) X10^3/uL Neut % (Auto) (50-75) % Lymph % (Auto) (25-40) % [place] % (Auto) (3-14) % Eos % (Auto) (2-4) % Baso % (Auto) (0-2) % Neut # (Auto) (5648-9868) /uL Lymph # (Auto) (7059-2122) /uL [place] # (Auto) (0-900) /uL Eos # (Auto) (0-450) /uL Baso # (Auto) (0-100) /uL D-Dimer (<230) ng/mL Sodium (137-145) mmol/L Potassium (3.4-5.1) mmol/L Chloride (98-107) mmol/L Carbon Dioxide (22-32) mmol/L BUN (9-20) mg/dL Creatinine (0.66-1.25) mg/dL Estimated GFR (>60) mL/min BUN/Creatinine Ratio (6-22) Glucose (80-110) mg/dL Calcium (8.4-10.2) mg/dL Magnesium (1.6-2.3) mg/dL Total Bilirubin (0.2-1.3) mg/dL AST (17-59) IU/L ALT (<50) IU/L Alkaline Phosphatase (38-126) U/L Total Creatine Kinase (55-170) U/L CK-MB (CK-2) (<2.37) ng/mL CK-MB (CK-2) Rel Index (1.5-5.0) % Troponin I < 0.012 (0.01-0.034) ng/mL NT-Pro-B Natriuret Pep 1140 H (<125) pg/mL Total Protein (6.3-8.2) g/dL Albumin (3.5-5.0) g/dL Globulin (1.7-4.1) g/dL Albumin/Globulin Ratio (1.0-2.8) Lipase (23-300) U/L Imaging Data Chest x-ray: Radiologist's Impression: MR#: [id number] : 1950 Acct:[id number] Age/Sex: 70 / M Date of Service: 09/11/21 Loc: ED Accession Number: [id number] ?? Procedure: XR chest 1V Ordering Provider: Chitra Lloyd D.O. PROCEDURE:? XR CHEST 1V ? INDICATIONS:? chest pain ? TECHNIQUE:? One view of the chest was acquired.? ? COMPARISON:? [facility], , XR CHEST 2V, 01/31/2021, 20:03. ? FINDINGS:? ? Surgical changes and devices:? None.? ? Lungs and pleura:? Minimal right basilar atelectasis and or infiltrate..? Left lung and both pleural spaces are clear. ? Mediastinum:? Mediastinal contours appear normal.? Heart size is normal.? ? Bones and chest wall:? No suspicious bony lesions.? Overlying soft tissues appear unremarkable.? ? IMPRESSION:? Minimal right basilar atelectasis and or infiltrate ? ? ? Approved by: Karel Clark M.D. on 09/11/2021 at 16:02? ECG Data Interpretation: EKG 1. Sinus arrhythmia rate 79 SC interval [address] changes similar to previous EKG PVCs noted EKG 2. Sinus arrhythmia rate 99 PVC noted similar to prior MDM Narrative Medical decision making narrative: Patient is having pleuritic like pain he is not hypoxic he is not anticoagulated. He is having runs of AFib but he seems to be asymptomatic and the highest rate it goes up to is about 120. He is taking metoprolol. Pain is actually better after Toradol. BNP is also mildly elevated with no prior history of congestive heart failure. All pleuritic like chest pain possibly PE but awaiting D-dimer. 6pm Dr. Sawyer cardiology has been consulted difficult to tell about his pleuritic pain. Does recommend observation and a limited echo tomorrow. Tirso, recommends checking ddimer then re-evaluate signed out to dr. amaury Allen: Received turned over. Reviewed patient's history physical. Awaiting D-dimer prior to admission. Patient's D-dimer is negative. No indication for advanced CT scan imaging currently. Dr. Chahal was informed of this. Will proceed with admission to the hospital for echocardiogram per cardiology recommendation. I did discuss this with the patient and his lab results. He expressed understanding and agreement. <Ankur Allen, DO - Last Filed: 09/11/21 19:26> Lab Data Labs: Lab Results 09/11/21 09/11/21 09/11/21 Range/Units 15:33 15:33 15:33 WBC 9.5 (4.5-11.0) X10^3/uL RBC 4.67 (4.5-5.9) X10^6/uL Hgb 13.7 (13.5-17.5) g/dL Hct 40.2 L (41-53) % MCV 86.1 (80-100) fL MCH 29.3 (26-34) PG MCHC 34.0 (30-36) % RDW 14.8 (11.6-14.8) % Plt Count 195 (150-400) X10^3/uL Neut % (Auto) 80.7 H (50-75) % Lymph % (Auto) 10.9 L (25-40) % [place] % (Auto) 7.1 (3-14) % Eos % (Auto) 0.7 L (2-4) % Baso % (Auto) 0.6 (0-2) % Neut # (Auto) 7600 H (7197-0515) /uL Lymph # (Auto) 1000 L (2411-9189) /uL [place] # (Auto) 700 (0-900) /uL Eos # (Auto) 100 (0-450) /uL Baso # (Auto) 100 (0-100) /uL D-Dimer < 200 (<230) ng/mL Sodium 139 (137-145) mmol/L Potassium 4.0 (3.4-5.1) mmol/L Chloride 106 (98-107) mmol/L Carbon Dioxide 27 (22-32) mmol/L BUN 27 H (9-20) mg/dL Creatinine 1.09 (0.66-1.25) mg/dL Estimated GFR > 60 (>60) mL/min BUN/Creatinine Ratio 24.8 H (6-22) Glucose 152 H (80-110) mg/dL Calcium 8.9 (8.4-10.2) mg/dL Magnesium 1.8 (1.6-2.3) mg/dL Total Bilirubin 0.6 (0.2-1.3) mg/dL AST 38 (17-59) IU/L ALT 29 (<50) IU/L Alkaline Phosphatase 82 (38-126) U/L Total Creatine Kinase 239 H (55-170) U/L CK-MB (CK-2) 2.36 (<2.37) ng/mL CK-MB (CK-2) Rel Index 1.0 L (1.5-5.0) % Troponin I < 0.012 (0.01-0.034) ng/mL NT-Pro-B Natriuret Pep (<125) pg/mL Total Protein 7.2 (6.3-8.2) g/dL Albumin 4.0 (3.5-5.0) g/dL Globulin 3.2 (1.7-4.1) g/dL Albumin/Globulin Ratio 1.3 (1.0-2.8) Lipase 36 (23-300) U/L 09/11/21 09/11/21 Range/Units 17:06 17:06 WBC (4.5-11.0) X10^3/uL RBC (4.5-5.9) X10^6/uL Hgb (13.5-17.5) g/dL Hct (41-53) % MCV (80-100) fL MCH (26-34) PG MCHC (30-36) % RDW (11.6-14.8) % Plt Count (150-400) X10^3/uL Neut % (Auto) (50-75) % Lymph % (Auto) (25-40) % [place] % (Auto) (3-14) % Eos % (Auto) (2-4) % Baso % (Auto) (0-2) % Neut # (Auto) (8182-9754) /uL Lymph # (Auto) (3765-9595) /uL [place] # (Auto) (0-900) /uL Eos # (Auto) (0-450) /uL Baso # (Auto) (0-100) /uL D-Dimer (<230) ng/mL Sodium (137-145) mmol/L Potassium (3.4-5.1) mmol/L Chloride (98-107) mmol/L Carbon Dioxide (22-32) mmol/L BUN (9-20) mg/dL Creatinine (0.66-1.25) mg/dL Estimated GFR (>60) mL/min BUN/Creatinine Ratio (6-22) Glucose (80-110) mg/dL Calcium (8.4-10.2) mg/dL Magnesium (1.6-2.3) mg/dL Total Bilirubin (0.2-1.3) mg/dL AST (17-59) IU/L ALT (<50) IU/L Alkaline Phosphatase (38-126) U/L Total Creatine Kinase (55-170) U/L CK-MB (CK-2) (<2.37) ng/mL CK-MB (CK-2) Rel Index (1.5-5.0) % Troponin I < 0.012 (0.01-0.034) ng/mL NT-Pro-B Natriuret Pep 1140 H (<125) pg/mL Total Protein (6.3-8.2) g/dL Albumin (3.5-5.0) g/dL Globulin (1.7-4.1) g/dL Albumin/Globulin Ratio (1.0-2.8) Lipase (23-300) U/L MDM Narrative Medical decision making narrative: Patient is having pleuritic like pain he is not hypoxic he is not anticoagulated. He is having runs of AFib but he seems to be asymptomatic and the highest rate it goes up to is about 120. He is taking metoprolol. Pain is actually better after Toradol. 6pm Dr. Sawyer cardiology has been consulted difficult to tell about his pleuritic pain. Does recommend observation and a limited echo tomorrow. Tisro, recommends checking ddimer then re-evaluate Dr Allen: Received turned over. Reviewed patient's history physical. Awaiting D-dimer prior to admission. Patient's D-dimer is negative. No indication for advanced CT scan imaging currently. Dr. Chahal was informed of this. Will proceed with admission to the hospital for echocardiogram per cardiology recommendation. I did discuss this with the patient and his lab results. He expressed understanding and agreement. Discharge Plan Departure Patient Disposition: Admitted as Observation Clinical Impression: Chest pain Admit Date/Time: 09/11/21 19:18 Admit Provider: Arron Danielle
[2021-09-11] MEDS: KETOROLAC 30 MG/ML VIAL 15 MG IV (16:11)
[2021-09-11 16:31] LABS: Alanine Aminotransferase 29 IU/L (<50); Albumin Globulin Ratio 1.3 (1.0-2.8); Alkaline Phosphatase 82 U/L (38-126); Aspartate Aminotransferase 38 IU/L (17-59); BUN Creatinine Ratio 24.8 (6-22); Bilirubin Total 0.6 mg/dL (0.2-1.3); Blood Urea Nitrogen 27 mg/dL (9-20); Calcium 8.9 mg/dL (8.4-10.2); Carbon Dioxide 27 mmol/L (22-32); Chloride 106 mmol/L (98-107); Creatine Kinase 239 U/L (55-170); Estimated Glomerular Filt Rate > 60 mL/min (>60); Globulin 3.2 g/dL (1.7-4.1); Glucose 152 mg/dL (80-110); HEMOLYSIS < 15 (0-50); Lipase 36 U/L (23-300); Magnesium 1.8 mg/dL (1.6-2.3); Sodium 139 mmol/L (137-145); Total Protein 7.2 g/dL (6.3-8.2)
[2021-09-11 16:42] LABS: Troponin I < 0.012 ng/mL (0.01-0.034)
[2021-09-11 16:45] LABS: Creatine Kinase MB 2.36 ng/mL (<2.37)
[2021-09-11 17:37] LABS: Troponin I < 0.012 ng/mL (0.01-0.034)
[2021-09-11 18:13] LABS: NT-proBNP (BNP-Adult 18+) 1140 pg/mL (<125)
[2021-09-11 18:39] LABS: D Dimer < 200 ng/mL (<230)
[2021-09-11 19:50] LABS: COVID19 -Nasal RAPID Negative (Negative)
--- NOTE | 2021-09-11 20:20 | DI.ECHO.S_ITS ---
[facility]---------+ [facility] +---------+ : : [address] : : : : [id number] : : : : Phone: [phone] Echocardiogram Report + + :Name: RICHI GIBSON Study Date: 09/12/2021 Height: 70 in : :[facility] ReadingLocation: Weight: 194 lb : : Gender: Male BSA: 2.1 m2 : :: 1950 Age: 70 yrs BP: 111/44 mmHg: :Reason For Study: CHEST PAIN : :Ordering Physician: PEPE, : :RIC Performed By: Edith Franklin : :Referring: RIC CANTU : + + Interpretation Summary The ejection fraction is estimated to be 40-45%. Frequent PVCs and dyssynchrony make it difficult to estimate the ejection fraction it appears to be mildly impaired.Cannot r/o amteroseptal hypokinesis. There has been no significant change since the previous exam. There is no significant valvular heart disease. Procedure: A two-dimensional transthoracic echocardiogram with color flow and Doppler was performed. The study quality was technically adequate. Comparison is made with the echocardiogram of 03/08/2021. The patient had frequent PVCs during the exam. The heart rate ranged between 71-92 bpm during the study. Left Ventricle: The left ventricle is normal in size and wall thickness. The ejection fraction is estimated to be 40-45%. There has been no significant change since the previous exam. Frequent PVCs and dyssynchrony make it difficult to estimate the ejection fraction it appears to be mildly impaired.Cannot r/o amteroseptal hypokinesis. Right Ventricle: The right ventricle is normal in size and function. Atria: The left atrium is mildly dilated. Right atrial size is normal. There is no Doppler evidence for an interatrial shunt. Mitral Valve: The mitral valve is normal in structure and function. There is trace mitral regurgitation. Aortic Valve: The aortic valve is trileaflet. The aortic valve opens well. There is no aortic valve stenosis. No aortic regurgitation is present. Tricuspid Valve: The tricuspid valve is normal in structure and function. There is mild tricuspid regurgitation. The right ventricular systolic pressure is estimated to be at least 29 mmHg based on an estimated right atrial pressure of 3 mm Hg. Pulmonic Valve: The pulmonic valve leaflets are thin and pliable; valve motion is normal. There is mild pulmonic regurgitation. Great Vessels: The aortic root is normal size. The dimensions of the ascending aorta are normal. The IVC is of normal diameter and collapses greater than 50% with a sniff. This suggests a low right atrial pressure of 3 mm Hg. Pericardium/ Pleura There is no pericardial effusion. There is no pleural effusion. MMode/2D Measurements & Calculations LVIDd: 5.4 cm LVOT diam: 2.2 cm LVIDs: 3.9 cm Ao root diam: 3.4 cm FS: 27.4 % asc Aorta Diam: 3.2 cm IVSd: 0.66 cm Ao Arch Diam (Prox Trans): 2.6 cm LVPWd: 0.80 cm LV garcia. diameter/BSA (cm/m^2): 2.6 LV sys. diameter/BSA (cm/m^2): 1.9 LA A2 area: 25.8 cm2 RA long axis: 5.7 cm LA A4 area: 20.6 cm2 RA area: 19.0 cm2 LA length (vol): 5.9 cm RA vol: 53.6 ml LA vol: 75.9 ml RA : 26.0 ml/m2 LA vol index: 36.8 ml/m2 IVC diam: 1.2 cm RVD1 (basal): 3.1 cm RVD2 (mid): 2.6 cm TAPSE: 1.9 cm Doppler Measurements & Calculations Ao V2 max: 120.8 cm/sec LVOT Max Cornelio: 131.4 cm/sec Ao V2 mean: 88.9 cm/sec LV V1 max P.9 mmHg Ao max P.9 mmHg LV V1 VTI: 24.5 cm Ao mean P.4 mmHg CHRIS(I,D): 3.7 cm2 Ao V2 VTI: 24.5 cm CHRIS(V,D): 4.1 cm2 sev ratio: 1.0 CHRIS indexed to BSA (cm^2/m^2): 1.8 MV E max cornelio: 75.3 cm/sec TR max cornelio: 255.0 cm/sec MV A max cornelio: 80.2 cm/sec TR max P.0 mmHg MV E/A: 0.94 PA V2 max: 94.2 cm/sec Med Peak E' Cornelio: 5.8 cm/sec PA V2 mean: 71.4 cm/sec E/E' med: 12.9 PA mean P.2 mmHg Lat Peak E' Cornelio: 6.7 cm/sec PA pr(Accel): 27.6 mmHg E/E' lat: 11.2 E/e' average: 12.0 MV dec time: 0.26 sec SV([facility]): 91.2 ml Reading Physician:01:43 PM
[2021-09-11] MEDS: METOPROLOL ER 25 MG TABLET PO (21:26)
[2021-09-11] MEDS: IBUPROFEN 400 MG TABLET 800 MG PO (21:26)
--- NOTE | 2021-09-11 21:55 | PC.NURSE ---
Pt arrived from ED alert and oriented x4, with all belongings. Pt able to stand at bedside, denies pain at this time. Vitals within normal limits. Admit done. Gave metoprolol and ibuprofen per JUL.
--- NOTE | 2021-09-11 23:56 | PC.NURSE ---
Addendum entered by Brenda Pink R.N. 09/12/21 03:24: SHOP BLACKSMITHMarly reports she believes patient is in 3rd degree heart block. Dr Danielle contacted and informed of previous HR in 30's and current concern for heart block. Order received for EKG and RT contacted for same. Original Note: SHOP BLACKSMITHMarly, reports patient's HR in 30's. Checked on patient and he is having no problems. BP is 111/44. Denies any chest pain/pressure and/or SOB, lightheadedness, dizziness. When returned to desk noted patient's HR back up into 70's. SHOP BLACKSMITH reports HR was in the 30's for approximately 2 minutes.
[2021-09-12 00:45] VITALS: BP 105/59; PULSE 69; RESP 14; TEMP 36.9; O2SAT 94
[2021-09-12 03:11] VITALS: BP 107/53; PULSE 65; RESP 12; TEMP 36.7; O2SAT 95
[2021-09-12 05:07] LABS: Add Manual Diff / Slide Review NO; Basophils Absolute Auto 100 /uL (0-100); Basophils Percent Auto 0.8 % (0-2); Eosinophils Absolute Auto 200 /uL (0-450); Eosinophils Percent Auto 2.4 % (2-4); Hematocrit 38.8 % (41-53); Hemoglobin 13.1 g/dL (13.5-17.5); Lymphocytes Absolute Auto 1600 /uL (1100-4500); Lymphocytes Percent Auto 22.4 % (25-40); Mean Corpuscular HGB Conc 33.7 % (30-36); Mean Corpuscular Hemoglobin 29.3 PG (26-34); Monocytes Absolute Auto 900 /uL (0-900); Neutrophils Absolute Auto 4500 /uL (1500-7000); Neutrophils Percent Auto 62.4 % (50-75); Platelet Count 176 X10^3/uL (150-400); Red Blood Cell Count 4.46 X10^6/uL (4.5-5.9); Red Cell Distribution Width 15.1 % (11.6-14.8); White Blood Cell Count 7.2 X10^3/uL (4.5-11.0)
[2021-09-12 05:17] LABS: BUN Creatinine Ratio 28.4 (6-22); Blood Urea Nitrogen 29 mg/dL (9-20); Calcium 8.6 mg/dL (8.4-10.2); Carbon Dioxide 25 mmol/L (22-32); Chloride 109 mmol/L (98-107); Estimated Glomerular Filt Rate > 60 mL/min (>60); Glucose 132 mg/dL (80-110); HEMOLYSIS < 15 (0-50); Potassium 3.4 mmol/L (3.4-5.1); Sodium 139 mmol/L (137-145)
--- NOTE | 2021-09-12 05:24 | DI.CT.S_ITS ---
CORRECTION Corrected on: 09/16/2021; PROCEDURE: CT ANGIO CHEST PE PROTOCOL INDICATIONS: chest pain TECHNIQUE: After the administration of intravenous contrast, 2 mm thick sections acquired from the pulmonary apices to the posterior costophrenic angles. 3-dimensional maximum intensity projection (MIP) coronal and sagittal reformats were then acquired through the thorax. For radiation dose reduction, the following was used: automated exposure control, adjustment of mA and/or kV according to patient size. COMPARISON: [facility], , ECHO DOPPLER COMPLETE, 07/06/2020, 15:16. FINDINGS: Image quality: Excellent. Pulmonary arteries: Pulmonary arteries are normal in size, and demonstrate no intraluminal filling defects to suggest central pulmonary embolism. Lungs and pleura: Patchy bibasilar atelectasis, right greater than left. Mild right basilar bronchial thickening. No pleural effusions or pneumothorax. Central and peripheral airways are patent. Mediastinum: Mild cardiomegaly, without pericardial effusion. No mediastinal or hilar adenopathy. Thoracic aorta is normal in caliber and enhancement. Esophagus is normal in caliber, without hiatal hernia. Bones and chest wall: No suspicious bony lesions. Ribs and thoracic spine appear intact throughout. Thyroid gland is unremarkable as visualized. No axillary or supraclavicular adenopathy. Abdomen: Visualized upper abdominal solid organs appear normal in the early arterial phase of enhancement. IMPRESSION: 1. No evidence acute pulmonary emboli. 2. Patchy bibasilar atelectasis, right greater than left. 3. Mild cardiomegaly. Dictated by: Martin Ferrell MD on 09/12/2021 at 8:01 Approved by: Martin Ferrell MD on 09/12/2021 at 8:06 Dictated by: Martin Ferrell M.D. on 09/16/2021 at 12:57 Approved by: Martin Ferrell M.D. on 09/16/2021 at 12:57 (Correction was simply to add my name as Dictating and Approving physician)
--- NOTE | 2021-09-12 05:26 | PM.HP.1 ---
History of Present Illness History of Present Illness Date Patient Seen: 09/12/21 Time Patient Seen: 04:00 Chief complaint: Chills, headache, chest pain, Narrative: Mr. Fonseca is a 70M with PMH NICM, EF 35-40%, PVCs on metoprolol, s/p RVOT ablation x2 last in 07/2021 who presents with chest pain. He had been in his normal state of health. He was active yesterday doing work that had him using his hands above his head, and also straining to pull-start a lawnmower. His notes he had shivering yesterday. He also had a small cough. Later in the day he developed chest pain that occurred with inspiration. He had no shortness of breath. His cough was not productive. He had no fevers. He recently had a cardiac MRI 07/2021 to rule out infiltrative process that did not show any abnormality. He states he had a stress last year in September/October of 2020. In the ED workup was done, vitals notable for no significant abnormality. Labs notable for WBC 9.5, hgb 13.7, creatinine 1.09. D-dimer <200. CK 239. Troponin negative x2. BNP 1140. Chest xray shows minimal atelectasis vs infiltrate. EKG showed sinus rhythm with frequent PVCs. Patient History Medical History Aphthous ulcer of tongue Cardiac arrhythmia Cognitive and behavioral changes Hearing loss Seasonal allergies Shoulder pain (~2011) Tinnitus Family & Social History Family History Father Stroke Heart disease Grandmother Dementia Mother Alzheimer's disease Social History: household members spouse Prior Living Arrangements House Safety & Behavioral: Feels Safe in Current Yes Environment Suicidal Ideation Description None Tobacco & Substance use: Smoking Status Former smoker alcohol intake frequency holiday/special occasion Substance Use Type does not use Meds Home Medications and Allergies Home Medications Medication Instructions Recorded Confirmed Type metoprolol succinate 25 mg 25 mg PO BID #180 tab 02/14/19 09/11/21 Rx tablet,extended release 24 hr (Toprol XL) oxycodone 5 mg tablet 5 mg PO Q6H PRN #10 tab 04/06/20 09/11/21 Rx atorvastatin 20 mg tablet 20 mg PO DAILY #90 tab 05/23/21 09/11/21 Rx bupropion HCl 150 mg tablet,12 hr 150 mg PO DAILY #90 tab 07/25/21 09/11/21 Rx sustained-release bupropion HCl 75 mg tablet 75 mg PO DAILY #7 tab 07/25/21 09/11/21 Rx Allergies Allergy/AdvReac Type Severity Reaction Status Date / Time No Known Drug Allergies Allergy Verified 09/11/21 15:26 Review of Systems Review of Systems Narrative: 14 systems reviewed and negative aside from what is noted in HPI Exam Vital Signs (past 8 hours): - 09/11/21 23:58 09/12/21 00:45 09/12/21 03:11 Temperature 98.7 F 98.4 F 98.1 F Pulse Rate 39 L 69 65 Respiratory Rate 14 14 12 Blood Pressure 111/44 L 105/59 L 107/53 L Pulse Oximetry 94 95 Oxygen Delivery Method Room Air Oxygen Flow Rate 0 Narrative Exam Narrative: GEN: no acute distress HEENT: moist mucous membranes, PERRL NECK: trachea midline, no JVD PULM: clear bilaterally CV: irregular, no murmurs ABD: soft, nontender, nondistended, no organomegaly, normal bowel sounds EXT: warm and well perfused with no edema NEURO: awake, alert, oriented, no focal deficits Objective Labs Result Diagrams: 09/12/21 04:50 09/12/21 04:50 Labs: Laboratory Results - last 24 hr 09/11/21 09/11/21 09/11/21 15:33 15:33 15:33 WBC 9.5 RBC 4.67 Hgb 13.7 Hct 40.2 L MCV 86.1 MCH 29.3 MCHC 34.0 RDW 14.8 Plt Count 195 Neut % (Auto) 80.7 H Lymph % (Auto) 10.9 L [place] % (Auto) 7.1 Eos % (Auto) 0.7 L Baso % (Auto) 0.6 Neut # (Auto) 7600 H Lymph # (Auto) 1000 L [place] # (Auto) 700 Eos # (Auto) 100 Baso # (Auto) 100 D-Dimer < 200 Sodium 139 Potassium 4.0 Chloride 106 Carbon Dioxide 27 BUN 27 H Creatinine 1.09 Estimated GFR > 60 BUN/Creatinine Ratio 24.8 H Glucose 152 H Calcium 8.9 Magnesium 1.8 Total Bilirubin 0.6 AST 38 ALT 29 Alkaline Phosphatase 82 Total Creatine Kinase 239 H CK-MB (CK-2) 2.36 CK-MB (CK-2) Rel Index 1.0 L Troponin I < 0.012 NT-Pro-B Natriuret Pep Total Protein 7.2 Albumin 4.0 Globulin 3.2 Albumin/Globulin Ratio 1.3 Lipase 36 SARS-CoV-2 (PCR) 09/11/21 09/11/21 09/11/21 17:06 17:06 19:30 WBC RBC Hgb Hct MCV MCH MCHC RDW Plt Count Neut % (Auto) Lymph % (Auto) [place] % (Auto) Eos % (Auto) Baso % (Auto) Neut # (Auto) Lymph # (Auto) [place] # (Auto) Eos # (Auto) Baso # (Auto) D-Dimer Sodium Potassium Chloride Carbon Dioxide BUN Creatinine Estimated GFR BUN/Creatinine Ratio Glucose Calcium Magnesium Total Bilirubin AST ALT Alkaline Phosphatase Total Creatine Kinase CK-MB (CK-2) CK-MB (CK-2) Rel Index Troponin I < 0.012 NT-Pro-B Natriuret Pep 1140 H Total Protein Albumin Globulin Albumin/Globulin Ratio Lipase SARS-CoV-2 (PCR) Negative 09/12/21 09/12/21 04:50 04:50 WBC 7.2 RBC 4.46 L Hgb 13.1 L Hct 38.8 L MCV 87.0 MCH 29.3 MCHC 33.7 RDW 15.1 H Plt Count 176 Neut % (Auto) 62.4 Lymph % (Auto) 22.4 L [place] % (Auto) 12.0 Eos % (Auto) 2.4 Baso % (Auto) 0.8 Neut # (Auto) 4500 Lymph # (Auto) 1600 [place] # (Auto) 900 Eos # (Auto) 200 Baso # (Auto) 100 D-Dimer Sodium 139 Potassium 3.4 Chloride 109 H Carbon Dioxide 25 BUN 29 H Creatinine 1.02 Estimated GFR > 60 BUN/Creatinine Ratio 28.4 H Glucose 132 H Calcium 8.6 Magnesium Total Bilirubin AST ALT Alkaline Phosphatase Total Creatine Kinase CK-MB (CK-2) CK-MB (CK-2) Rel Index Troponin I NT-Pro-B Natriuret Pep Total Protein Albumin Globulin Albumin/Globulin Ratio Lipase SARS-CoV-2 (PCR) Assessment & Plan Assessment & Plan narrative: Mr. Fonseca is a 70M with PMH frequent PVCs s/p ablation, NICM EF 35-40% who presents with chest pain. 1. Chest pain, acute -chest xray with questionable infiltrate -D-dimer negative -patient supposedly had cough and chills, but currently no leukocytosis, fevers, or respiratory symptoms -will order CT with PE protocol to eval for infiltrate and rule out PE -troponins negative -EKG showed PVCs -etiology possibly consistent with pericarditis -order ibuprofen, consider colchicine -ordered ECHO for further eval 2. Depression, chronic -continue bupropion CODE: FUll Proxy: Mikael Fonseca I have utilized all available resources to reconcile the patient's home medications Time Spent With Patient Critical Care time: I spent a total of [] minutes of critical care time on this patient's care today; this time is exclusive of procedural time. Quality MIPS - Admit I confirm the patient?s Advance Care Plan is present, Code status is documented, Surrogate decision maker is in patient?s record [If Yes, STOP here]: Yes
[2021-09-12] MEDS: IBUPROFEN 400 MG TABLET 800 MG PO (05:50)
[2021-09-12 06:00] VITALS: BP 118/56; PULSE 66; RESP 14; TEMP 36.3; O2SAT 97
[2021-09-12] MEDS: ATORVASTATIN 20 MG TABLET PO (08:34)
[2021-09-12] MEDS: SODIUM CHLORIDE 0.9% FLUSH 10 ML IV (08:34)
[2021-09-12 08:39] VITALS: BP 137/70; PULSE 70; O2SAT 96
[2021-09-12] MEDS: METOPROLOL ER 25 MG TABLET PO (08:39)
[2021-09-12 08:50] VITALS: BP 98/55; PULSE 57; RESP 16; TEMP 36.6; O2SAT 98
[2021-09-12 09:09] VITALS: PULSE 61
--- NOTE | 2021-09-12 09:35 | CM.DANOTE ---
Addendum entered by XU Balderas 09/12/21 13:28: ADD: Per MD, based on Echo results pt stable for d/c home today with new Rx for likely pericarditis and no identified barriers to discharge. Per RN, no concerns with d/c home today and pt is hopeful to discharge soon. BF Original Note: Patient is a 70 yo male who was admitted on 09/11/21 for Chills/Headache/Chest Pain. Pt has M[employer] and [employer] OUT [employer] for insurance and his PCP is Dr. Wil Young. EMR was reviewed. Per MD, pt with hx of EF of 35-40% and admitted for Chest Pain r/o and Echo. SW attempted to meet bedside with pt but having bedside procedure and will attempt again later today. Pt resides in [place] with his spouse and is active and independent at baseline and drives and was doing yard work when he started having symptoms and no hx of prior hospitalizations at [facility]. Plan: SW to follow closely for Echo results towards confirming safe d/c to home via spouse POV and any further identified needs. XU Balderas Discharge Planning/Care Management Advanced directive, confirm from FAMILY Start: 09/11/21 20:48 Freq: Q24H Status: Active Protocol: Document 09/11/21 20:48 CS (Rec: 09/11/21 21:21 CS [id number]) Advance Directive, confirm on record Time 21:21 Person contacted Patient Copy received No CM Discharge Assessment Start: 09/12/21 09:27 Freq: Status: Active Protocol: Document 09/12/21 09:27 BF (Rec: 09/12/21 09:35 BF [id number]) Discharge Planning Assessment Assigned Medical Records Library Professor XU Day DPOA/Assigned Designee Name spouse Mikael Raymundo Contact Information [phone] Advance Directives? Yes Advance Directives on File No History Provided By Patient,Medical Record Has Patient been admitted in last 30 No days? Prior Living Arrangements House Household Members spouse Type of transporation used prior to Drives own vehicle admit Independent with ADL's Yes Is patient alert and oriented? Yes Caregiver for Another No Barriers to Discharge No Discharge Plan Home Transportation Arrangement Spouse can transport at d/c Referrals Initiated None needed Additional Comment Pending Echo and progress Whiteboard Updated in Patient Room with Yes name and ext. # of Medical Records Library Professor Review Status In Process Please Provide Date Initial DC 09/12/21 Assessment Was Performed Next Review Type Continued Stay Review
--- NOTE | 2021-09-12 13:03 | P.DS_ITS ---
History of Present Illness History of Present Illness Date Patient Seen: 09/12/21 Time Patient Seen: 13:03 Chief complaint: Chills, headache, chest pain, Narrative: Per Dr. Danielle, Mr. Fonseca is a 70M with PMH NICM, EF 35-40%, PVCs on metoprolol, s/p RVOT ablation x2 last in 07/2021 who presents with chest pain. He had been in his normal state of health. He was active yesterday doing work that had him using his hands above his head, and also straining to pull-start a lawnmower. His notes he had shivering yesterday. He also had a small cough. Later in the day he developed chest pain that occurred with inspiration. He had no shortness of breath. His cough was not productive. He had no fevers. He recently had a cardiac MRI 07/2021 to rule out infiltrative process that did not show any abnormality. He states he had a stress last year in September/October of 2020. In the ED workup was done, vitals notable for no significant abnormality. Labs notable for WBC 9.5, hgb 13.7, creatinine 1.09. D-dimer <200. CK 239. Troponin negative x2. BNP 1140. Chest xray shows minimal atelectasis vs infiltrate. EKG showed sinus rhythm with frequent PVCs. Discharge Providers Provider Date of admission: 09/11/21 19:18 Discharge Date: 09/12/21 Primary care physician: Wil Young DO Discharge provider: Brennan Chahal DO Summary Hospital Course Discharge Diagnosis: 1. Acute pericarditis, likely secondary to recent ablation 2. non-ischemic cardiomyopathy, EF 40-45%. 3. chronic depression Hospital Course: Mr. Fonseca is a 70M with PMH frequent PVCs s/p ablation, NICM EF 35-40% who presents with chest pain. CT angiogram is still not read but no apparent PE on my interpretation with a mild pericardial effusion. Echocardiogram was also performed and showed no significant changes to prior study. He had multiple PVCs on telemetry monitoring. Given pleuritic nature and history, patient was started on ibuprofen with improvement in symptoms. Given recent ablation procedure this likely represents an acute pericarditis. He was discharged home the following day with recommendations to continue ibuprofen until his symptoms are resolved, at 600-800 mg TID. He was also prescribed colchicine for 90 days to help prevent recurrence. He should follow up with cardiology and PCP as previously scheduled. Time Spent with Patient Time spent: Greater than 30 minutes Exam Vital Signs (past 8 hours): - 09/12/21 06:00 09/12/21 08:39 09/12/21 08:50 Temperature 97.4 F L 97.8 F Pulse Rate 66 70 57 L Respiratory Rate 14 16 Blood Pressure 118/56 L 137/70 98/55 L Pulse Oximetry 97 96 98 09/12/21 09:09 Temperature Pulse Rate 61 Respiratory Rate Blood Pressure Pulse Oximetry Oxygen Delivery Method Room Air Oxygen Flow Rate 0 Narrative Exam Narrative: General:? Patient is well developed and well nourished, in no distress at this time. HEENT:? Normocephalic, atraumatic, extraocular muscles intact, oral pharynx is clear and mucous membranes are moist. Neck: supple and symmetric, trachea is midline, no cervical adenopathy. Negative for JVD Chest:? Normal AP diameter and contour without kyphoscoliosis, no tachypnea, equal chest rise bilaterally. Lungs:? CTA b/l no wheezing rhonchi or rales. Cardio:?RRR no m/r/g. Abdomen: S NT ND. No CVA tenderness. Musculoskeletal:? Muscle strength and tone are equal within normal limits, no deformity. Extremities: No edema or joint effusions. No cyanosis or clubbing. Objective Labs Result Diagrams: 09/12/21 04:50 09/12/21 04:50 Labs: Laboratory Results - last 24 hr 09/11/21 09/11/21 09/11/21 15:33 15:33 15:33 WBC 9.5 RBC 4.67 Hgb 13.7 Hct 40.2 L MCV 86.1 MCH 29.3 MCHC 34.0 RDW 14.8 Plt Count 195 Neut % (Auto) 80.7 H Lymph % (Auto) 10.9 L [place] % (Auto) 7.1 Eos % (Auto) 0.7 L Baso % (Auto) 0.6 Neut # (Auto) 7600 H Lymph # (Auto) 1000 L [place] # (Auto) 700 Eos # (Auto) 100 Baso # (Auto) 100 D-Dimer < 200 Sodium 139 Potassium 4.0 Chloride 106 Carbon Dioxide 27 BUN 27 H Creatinine 1.09 Estimated GFR > 60 BUN/Creatinine Ratio 24.8 H Glucose 152 H Calcium 8.9 Magnesium 1.8 Total Bilirubin 0.6 AST 38 ALT 29 Alkaline Phosphatase 82 Total Creatine Kinase 239 H CK-MB (CK-2) 2.36 CK-MB (CK-2) Rel Index 1.0 L Troponin I < 0.012 NT-Pro-B Natriuret Pep Total Protein 7.2 Albumin 4.0 Globulin 3.2 Albumin/Globulin Ratio 1.3 Lipase 36 SARS-CoV-2 (PCR) 09/11/21 09/11/21 09/11/21 17:06 17:06 19:30 WBC RBC Hgb Hct MCV MCH MCHC RDW Plt Count Neut % (Auto) Lymph % (Auto) [place] % (Auto) Eos % (Auto) Baso % (Auto) Neut # (Auto) Lymph # (Auto) [place] # (Auto) Eos # (Auto) Baso # (Auto) D-Dimer Sodium Potassium Chloride Carbon Dioxide BUN Creatinine Estimated GFR BUN/Creatinine Ratio Glucose Calcium Magnesium Total Bilirubin AST ALT Alkaline Phosphatase Total Creatine Kinase CK-MB (CK-2) CK-MB (CK-2) Rel Index Troponin I < 0.012 NT-Pro-B Natriuret Pep 1140 H Total Protein Albumin Globulin Albumin/Globulin Ratio Lipase SARS-CoV-2 (PCR) Negative 09/12/21 09/12/21 04:50 04:50 WBC 7.2 RBC 4.46 L Hgb 13.1 L Hct 38.8 L MCV 87.0 MCH 29.3 MCHC 33.7 RDW 15.1 H Plt Count 176 Neut % (Auto) 62.4 Lymph % (Auto) 22.4 L [place] % (Auto) 12.0 Eos % (Auto) 2.4 Baso % (Auto) 0.8 Neut # (Auto) 4500 Lymph # (Auto) 1600 [place] # (Auto) 900 Eos # (Auto) 200 Baso # (Auto) 100 D-Dimer Sodium 139 Potassium 3.4 Chloride 109 H Carbon Dioxide 25 BUN 29 H Creatinine 1.02 Estimated GFR > 60 BUN/Creatinine Ratio 28.4 H Glucose 132 H Calcium 8.6 Magnesium Total Bilirubin AST ALT Alkaline Phosphatase Total Creatine Kinase CK-MB (CK-2) CK-MB (CK-2) Rel Index Troponin I NT-Pro-B Natriuret Pep Total Protein Albumin Globulin Albumin/Globulin Ratio Lipase SARS-CoV-2 (PCR) PFSH Medical History Aphthous ulcer of tongue Cardiac arrhythmia Cognitive and behavioral changes Hearing loss Seasonal allergies Shoulder pain (~2011) Tinnitus Family History Father Stroke Heart disease Grandmother Dementia Mother Alzheimer's disease Social History household members: spouse Smoking Status: Former smoker Discharge Plan Discharge Plan Patient Disposition: Home Provider Discharge Comment: You were admitted to the hospital with chest pain, likely due to a process called pericarditis or inflammation of the lining around your heart. You should continue taking 800 mg of ibuprofen at home 3 times a day until your symptoms are completely resolved. I have also sent 3 months of colchicine which is a medication design to reduce the recurrence rate of pericarditis. Discharge orders & Medications Prescriptions: New ibuprofen 400 mg Tablet 800 mg PO Q8HR 7 Days Qty: 21 0RF colchicine 0.6 mg tablet 0.6 mg PO DAILY 90 Days Qty: 180 0RF Continued atorvastatin 20 mg tablet 20 mg PO DAILY Qty: 90 0RF Rx Instructions: APPOINTMENT DUE FOR FURTHER REFILLS. THANK YOU! metoprolol succinate [Toprol XL] 25 mg tablet extended release 24 hr 25 mg PO BID Qty: 180 3RF bupropion HCl 150 mg tablet sustained-release 12 hr 150 mg PO DAILY Qty: 90 1RF Rx Instructions: Initiate this dose after finishing room the prescription with 75 mg oxycodone 5 mg tablet 5 mg PO Q6H PRN (Reason: pain) Qty: 10 0RF Label Comments: for tooth pain Follow up/Referrals: Wil Young DO [Primary Care Provider] - Diet/Activity/Treatments Diet: Diet as Tolerated Activity: As tolerated Visit Report/Discharge Packet Instructions: DI for Pericarditis Discharge Data Primary Care Provider: Wil Young Attending Provider: Arron Danielle
[2021-09-12] MEDS: POTASSIUM CHLORIDE 20 MEQ TAB 40 MEQ PO (13:50)
[2021-09-12] MEDS: COLCHICINE 0.6 MG TABLET PO (13:50)
--- NOTE | 2021-09-12 15:05 | PC.NURSE ---
Discharge Note Patient A&O, VSS, no complaints of pain/discomfort. Discharge packet reviewed with patient and , all questions/concerns addressed. PIV/TELE discontinued. Patient able to dress self and pack belongings. Patient taken down via wheelchair to POV.
== END 2021-09-12 14:15 | disposition home or self-care (01) ==
LOC: ED 18:25 → AC 19:19
PROVIDERS: Emergency Medicine; Admitting Provider Internal Medicine; Emergency Provider Emergency Medicine; PCP Family Medicine; Visit Provider Internal Medicine
DX: R07.9 Chest pain, unspecified (principal); F32.A Depression, unspecified; R51.9 Headache, unspecified; I48.91 Unspecified atrial fibrillation; Z20.822 Contact with and (suspected) exposure to COVID-19
CPT/HCPCS: 36415; 71045; 71275; 80048; 80053; 82550; 82553; 83690; 83735; 83880; 84484; 85025; 85379; 87635; 93005; 93306; 94760; 96374; 99284; C9803; G0378; J1885; Q9967

== ENCOUNTER → 2021-12-20 11:52 | Outpatient (CLI) | payer MEDICARE, OTHER, SELFPAY ==
[2021-09-11 20:36] VITALS: BMI 26.7
[2021-12-20 12:40] LABS: COVID19 -Nasal RAPID Negative (Negative)
== END ==
PROVIDERS: PCP Family Medicine; Visit Provider Surgery
DX: Z20.822 Contact with and (suspected) exposure to COVID-19 (principal); Z01.812 Encounter for preprocedural laboratory examination
CPT/HCPCS: 87635; C9803

== ENCOUNTER 2021-12-21 07:43 | Day surgery (SDC) | payer MEDICARE, OTHER, SELFPAY ==
[2021-09-11 20:36] VITALS: BMI 26.7
--- NOTE | 2021-12-21 | PATH_ITS ---
[facility] Accession Number: [id number] . 01 Material submitted: . colon - SIGMOID POLYP . 01 Clinical history: . diarrhea, unspecified . 01 Diagnosis: Sigmoid Polyp: Superficial portions of colorectal mucosa x2 with patchy, mild hyperplastic mucosal changes. There is no evidence of microscopic colitis, active inflammation, granulomas, or regions of dysplasia. MRV 12/23/2021 1155 Local . 01 Electronically signed: . Eneida Baker MD, Pathologist NPI- [id number] . 01 Gross description: . SIGMOID POLYP: Received in formalin are 2 fragment(s) of vickers, soft tissue measuring 0.3 x 0.2 x 0.2 cm to 0.5 x 0.3 x 0.2 cm submitted entirely in 1 cassette(s) /YOLY 12/21/2021 2233 Local . 01 Pathologist provided ICD-10: K63.5, R19.7 . 01 CPT . 451391 Specimen Comment: A courtesy copy of this report has been sent to [phone] Performed at: 01 [facility] [address] [place] [address], [place], [place] [id number] MD Delta Leggett MD Phone: [phone]
[2021-12-21 08:19] VITALS: BP 143/77; PULSE 56; RESP 16; TEMP 35.7; O2SAT 100
[2021-12-21] MEDS: LACTATED RINGERS 1,000 ML 200 ML IV (08:28)
--- NOTE | 2021-12-21 08:31 | PM.HP.1 ---
History of Present Illness History of Present Illness Date Patient Seen: 12/21/21 Time Patient Seen: 08:32 Chief complaint: SDC Narrative: 71-year-old man here for a colonoscopy secondary to chronic diarrhea. Significant cardiac history the procedures to be performed under anesthesia sedation today. No abdominal pain nausea vomiting. Patient History Medical History (Updated 12/21/21 @ 08:34 by Isaias Beckman MD) Aphthous ulcer of tongue Cardiac arrhythmia Cognitive and behavioral changes Hearing loss Hyperlipidemia Shoulder pain (~2011) Tinnitus Surgical History (Updated 12/21/21 @ 08:32 by Xiomara Munoz RN) H/O cardiac radiofrequency ablation Family & Social History Family History Father Stroke Heart disease Grandmother Dementia Mother Alzheimer's disease Social History: household members spouse Tobacco & Substance use: Smoking Status Former smoker alcohol intake frequency holiday/special occasion Substance Use Type does not use Meds Home Medications and Allergies Home Medications Medication Instructions Recorded Confirmed Type metoprolol succinate 25 mg 25 mg PO BID #180 tabs 02/14/19 12/21/21 Rx tablet,extended release 24 hr (Toprol XL) atorvastatin 20 mg tablet 20 mg PO DAILY #90 tabs 05/23/21 12/21/21 Rx bupropion HCl 150 mg tablet,12 hr 150 mg PO DAILY #90 tabs 07/25/21 12/21/21 Rx sustained-release sildenafil 50 mg tablet 50 mg PO DAILY PRN sexual activity 09/23/21 12/21/21 Rx #20 tabs Allergies Allergy/AdvReac Type Severity Reaction Status Date / Time No Known Drug Allergies Allergy Verified 09/15/21 15:18 Exam Vital Signs (past 8 hours): - 12/21/21 08:19 Temperature 96.3 F L Pulse Rate 56 L Respiratory Rate 16 Blood Pressure 143/77 H Pulse Oximetry 100 Oxygen Delivery Method Room Air Oxygen Delivery Method Room Air Narrative Exam Narrative: General adult man alert oriented no acute distress Chest nonlabored respiration Abdomen soft nontender Assessment & Plan Assessment and plan (1) Diarrhea: Status: Acute Plan 71-year-old man with chronic diarrhea here for diagnostic colonoscopy. Significant cardiac comorbidities will proceed with anesthesia for sedation measures. Overview of procedure was discussed with patient. Risks including bleeding, missed diagnosis, anesthetic complication, intestinal perforation were discussed. Questions have been answered he is in agreement with this plan. Time Spent With Patient Critical Care time: I spent a total of [] minutes of critical care time on this patient's care today; this time is exclusive of procedural time.
--- NOTE | 2021-12-21 09:10 | PM.OP.COLON ---
Operative Date/Time/Diagnoses Date of procedure: 12/21/21 Time of procedure: 09:10 Pre-op diagnosis: Chronic diarrhea Post-op diagnosis: other (Diverticulosis) Procedure & Clinicians Study performed: Colonoscopy Same procedure as scheduled: Yes Indications: Chronic diarrhea Surgeon: Isaias Beckman Procedure Notes Procedure in detail: The history and physical was performed/updated and the patient is ASA class is 3. The procedure was discussed in detail with the patient. Potential risks complications including infection, bleeding, missed diagnosis, perforation, need for surgery, and were explained. Their questions were answered and informed consent was obtained. Patient was brought to the procedure room and placed standard monitoring equipment. The patient's vital signs were monitored continuously throughout the entire procedure. Prior to starting time-out was performed. The patient was placed in the left lateral recumbent position. Procedural sedation was administered by Anesthesia. Examination began with a thorough inspection of the perianal area there was no evidence of fissures, fistulae, external hemorrhoids or cutaneous malignancy. The colonoscopy scope was then placed into the anal canal and was advanced to the cecum, which was identified by the ileocecal valve, the appendiceal orifice and the confluence of the taenia. The scope was then slowly withdrawn examining colon thoroughly in all directions, irrigating it of any residual stool. FINDINGS 1. Sigmoid-5 mm polyp removed with biopsy forceps 2. Cardoza extensive diverticulosis The patient tolerated the procedure well. They will be discharged once criteria are met. The prep was of good/excellent quality. The withdrawl time was 8 minutes. Specimen(s): other (Sigmoid polyp) Complications: none Impression: Diverticulosis, colonic polyp Post-procedure Recommendations: Colonoscopy in 5 years and High fiber diet Disposition: same day surgery
[2021-12-21 09:23] VITALS: BP 133/66; PULSE 72; RESP 16; TEMP 36.6; O2SAT 99
[2021-12-21 09:28] VITALS: BP 137/61; PULSE 79; RESP 16; O2SAT 100
[2021-12-21 09:35] VITALS: BP 141/77; PULSE 74; RESP 16; O2SAT 100
[2021-12-21 09:44] VITALS: BP 147/76; PULSE 70; RESP 16; TEMP 36.6; O2SAT 100
== END 2021-12-21 10:03 | disposition home or self-care (01) ==
PROVIDERS: PCP Family Medicine; Referring Provider Surgery; Visit Provider Surgery
PROC: 0DJD8ZZ Inspection of Lower Intestinal Tract, Via Natural or Artificial Opening Endoscopic (ICD-10-PCS; CPT 45378; principal; 2021-12-21 08:45)
DX: K52.9 Noninfective gastroenteritis and colitis, unspecified (principal); K57.30 Diverticulosis of large intestine without perforation or abscess without bleeding; K63.5 Polyp of colon
CPT/HCPCS: 45380; 99152; J2704

== ENCOUNTER 2023-08-20 09:01 | Day surgery (SDC) | payer MEDICARE, OTHER, SELFPAY ==
[2021-09-11 20:36] VITALS: BMI 26.7
[2023-08-20] VITALS (9 sets, daily range): BP systolic 123–151; BP diastolic 68–90; PULSE 39–60; RESP 14–21; TEMP 36.4–36.8; O2SAT 97–100
--- NOTE | 2023-08-20 | PATH_ITS ---
[facility] Accession Number: [id number] No. of containers..02 Tissue . 01 Material submitted: . PART A: duodenum - DUODENAL PART B: stomach - ANTRUM . 01 Diagnosis: Part A: DUODENAL: Duodenal mucosa with focal mild active inflammation. No evidence of celiac disease. No infectious organisms identified. See comment. . Specimen Comments: The features raise a differential including peptic duodenitis or NSAID-induced injury among other possibilities. . Part B: ANTRUM: Gastric mucosa with minimal chronic inflammation. No Helicobacter organisms identified. No intestinal metaplasia, dysplasia, or malignancy identified. STO 08/23/2023 1350 Local . 01 Electronically signed: . Delta Leggett MD, Pathologist NPI- [id number] . 01 Gross description: . Part A: DUODENAL: Received in formalin are 4 fragment(s) of vickers, soft tissue measuring 0.1 x 0.1 x 0.1 cm to 0.2 x 0.2 x 0.2 cm submitted entirely in 1 cassette(s) . Part B: ANTRUM: Received in formalin is 1 fragment(s) of vickers, soft tissue measuring 0.3 x 0.2 x 0.2 cm submitted entirely in 1 cassette(s) /YOLY 08/23/2023 1350 Local . 01 Microscopic: . Part B: ANTRUM: An immunohistochemical stain was performed to evaluate for Helicobacter organisms and is negative. The control stains appropriately. * This test was developed and its performance characteristics determined by [employer]. It has not been cleared or approved by the U.S. Food and Drug Administration. The FDA has determined that such clearance or approval is not necessary. This test is used for clinical purposes. It should not be regarded as investigational or for research. . 01 Pathologist provided ICD-10: K29.30, K29.80 . 01 CPT . 201391, 957295, O22640 Specimen Comment: A courtesy copy of this report has been sent to [phone] Performed at: 01 [facility] [address] [place] [address], [place], [place] [id number] MD Delta Leggett MD Phone: [phone]
--- NOTE | 2023-08-20 09:36 | PM.HP.1 ---
History of Present Illness History of Present Illness Date Patient Seen: 08/20/23 Time Patient Seen: 09:36 Chief complaint: EGD Narrative: This is a 72-year-old male reporting for upper endoscopy. I reviewed the recent clinic note by Dr. Barahona. No changes. [facility] Medical History Pre-diabetes Anemia History of basal cell carcinoma Chronic diarrhea Skin lesion Weight loss, non-intentional Colon polyps Hyperlipidemia COVID-19 Autism Erectile dysfunction Shoulder pain (~2011) Tinnitus Hearing loss Cardiac arrhythmia Depression (04/13/17) Essential hypertension (03/19/17) Mixed hyperlipidemia (09/20/16) Diverticulosis of large intestine without hemorrhage (04/06/15) Neck pain (02/24/15) Cardiac arrhythmia (02/24/15) Lumbar radiculopathy, acute Cervical stenosis of spinal canal Surgical History H/O cardiac radiofrequency ablation Family History Father Stroke Heart disease Grandmother Dementia Mother Alzheimer's disease Social History household members: spouse Smoking Status: Former smoker Meds Home Medications and Allergies Home Medications Medication Instructions Recorded Confirmed Type metoprolol succinate 25 mg 25 mg PO BID #180 tabs 02/14/19 08/20/23 Rx tablet,extended release 24 hr (Toprol XL) atorvastatin 20 mg tablet 20 mg PO DAILY #90 tabs 03/30/23 08/20/23 Rx sildenafil 50 mg tablet 50 mg PO DAILY PRN sexual activity 03/30/23 08/20/23 Rx #20 tabs ketoconazole 2 % shampoo topical 08/20/23 History Allergies Allergy/AdvReac Type Severity Reaction Status Date / Time diclofenac [From Voltaren] AdvReac Intermediate Rash Verified 08/20/23 09:24 Review of Systems Review of Systems ROS: Yes All systems reviewed with the patient and are negative except as otherwise documented Exam Vital Signs (past 8 hours): - 08/20/23 09:30 Temperature 97.6 F Pulse Rate 60 Respiratory Rate 16 Pulse Oximetry 97 Oxygen Delivery Method Room Air Oxygen Delivery Method Room Air Const General: cooperative HENMT Head: normal to inspection Eyes General: appearance normal, both eyes and all related structures Neck Neck: normal visual inspection Chest Chest: normal inspection of the chest Resp Effort & Inspection: normal respiratory effort Cardio Rate: regular rate GI Inspection: normal to inspection Skin General: no rashes or lesions noted Neuro General: patient alert and patient awake Extrem General: normal to inspection and no pedal edema Psych Appearance: grossly normal Assessment & Plan Assessment & Plan narrative: This is a 72-year-old male with unexplained weight loss and diarrhea. EGD is pursued today.
--- NOTE | 2023-08-20 09:43 | PM.PREOP ---
Pre-operative Note Interval Note History & Physical reviewed/Exam performed by Physician: Yes Changes to H&P: No ASA Class (for procedural sedation): II
[2023-08-20] MEDS: LACTATED RINGERS 1,000 ML 100 ML IV (09:47)
--- NOTE | 2023-08-20 10:38 | PM.OP.EGD ---
Operative Date/Time/Diagnoses Date of procedure: 08/20/23 Time of procedure: 10:38 Pre-op diagnosis: Weight loss and diarrhea Post-op diagnosis: same Procedure & Clinicians Study performed: EGD with biopsies Same procedure as scheduled: Yes Indications: Weight loss and diarrhea Surgeon: Ridge Hidalgo Procedure Notes SCOAP/Timeout: Done Procedure in detail: After the risks and benefits were explained, written and verbal informed consent was obtained. The patient was brought into the procedure room and placed into the left lateral decubitus position. Please see anesthesia notes for sedation details. The scope was introduced into the mouth through the bite block and advanced under direct visualization to the 2nd portion of the duodenum. The scope was slowly withdrawn carefully examining the mucosa for any defects or lesions. Retroflexed views were accomplished in the stomach. The stomach was decompressed, the scope was then removed from the patient who tolerated the procedure well. Sedation minutes: 7 Complications: none Impression: 1. Duodenum: There was some subtle patchy erythema without erosion and no ulceration noted in the 2nd portion of the duodenal. Random D2 biopsies were taken for exclusion of sprue. 2. Stomach: Mild gastropathy was appreciated. Biopsies were taken from the antrum for exclusion of H pylori or other pathology. Retroflexed views of the LES were unremarkable. There were no ulcers, mass lesions, or evidence of outlet obstruction. 3. Esophagus: The squamocolumnar junction correlated with the top of the gastric folds. The GEJ was at 40 cm from the incisors. This was normal in appearance. No sign of stricture nor any inflammation. The remainder of the esophagus was also visually normal. Endoscopic diagnosis 1. Mild gastropathy 2. Mild duodenopathy Post-procedure Plan for aftercare: 1. Await histology. 2. If there are no histologic findings to account for the symptoms of weight loss and diarrhea, the next steps will be a CT scan of the abdomen and pelvis. Disposition: PACU
--- NOTE | 2023-08-20 11:14 | SUR.PHASEI ---
Anesthesia Dr Duran to bedside. EKG completed per MD order. Dr Duran has seen EKG and presented findings to hospitalist. Will await any additional orders, if any. Pt denies any complaints of cp, sob.
--- NOTE | 2023-08-20 11:46 | SUR.PHASEI ---
Hospitalist Dr Chahal to bedside to assess patient. States to hold metoprolol until he can get into his pcp or drilling field operator, as long as that can happen pretty quickly. May need a holter monitor.
--- NOTE | 2023-08-20 12:16 | SUR.PHASEI ---
Spoke to on phone. Relayed to her that Dr Duran and Dr Velasco hospitalist okay with patient discharging home. Instructions included on discharge info to follow up with pcp or teletray operator as soon as possible and to hold metoprolol until that happens. states that she is at Dr Mia's office and is making him a follow up.
--- NOTE | 2023-08-20 14:14 | SUR.PHASEII ---
Called [facility] and appointment made for patient tomorrow 08/21/[address] Sawyer. Pt EKG, anesthesia, PACU records and ECG strips faxed to the clinic. Called and made appointment with PCP iVvian Harrington covering for Dr Mai on 08/22/23 at 4:30pm. Called and spoke to patient and confirming appointments.
== END 2023-08-20 12:27 | disposition home or self-care (01) ==
PROVIDERS: PCP Family Medicine; Referring Provider Internal Medicine Gastroenterology; Visit Provider Internal Medicine Gastroenterology
PROC: 0DJ08ZZ Inspection of Upper Intestinal Tract, Via Natural or Artificial Opening Endoscopic (ICD-10-PCS; CPT 43235; principal; 2023-08-20 10:00)
DX: R19.7 Diarrhea, unspecified (principal); R63.4 Abnormal weight loss; K31.9 Disease of stomach and duodenum, unspecified; K29.80 Duodenitis without bleeding; K29.50 Unspecified chronic gastritis without bleeding
CPT/HCPCS: 43239; 93005; 93010; J2704

== ENCOUNTER → 2023-10-08 09:21 | Outpatient (CLI) | payer MEDICARE, OTHER, SELFPAY ==
[2021-09-11 20:36] VITALS: BMI 26.7
--- NOTE | 2023-10-08 09:24 | DI.ECHO.S_ITS ---
[facility] : : [address] : [facility] : : [place], : : [place] [address] : : Phone: [phone] Echocardiogram Report + + :Name: RICHI GIBSON Study Date: 10/08/2023 Height: 70 in : [id number] ReadingLocation: Weight: 178 lb: : Gender: Male BSA: 2.0 m2 : :: 1950 Age: 72 yrs : :Reason For Study: VENTRICULAR PREMATURE DEPOLARIZATION : :Ordering Physician: KAM, : :NETTE Performed By: Jah Diez : :Referring: NETTE SAWYER : + + Interpretation Summary 1) Normal left ventricular size and thickness with mildly reduced systolic function (EF 45-50%). 2) Normal right ventricular size with low normal function. 3) No significant valvular abnormalities. 4) Compared to the Echo done 09/12/2021, no significant change. Procedure: A two-dimensional transthoracic echocardiogram with color flow and Doppler was performed. The study quality was technically adequate. Comparison is made with the echocardiogram of 09/12/2021. The heart rate ranged between 53-58 bpm during the study. The patient had occasional PVCs during the exam. Left Ventricle: The left ventricle is normal in size and wall thickness. The ejection fraction is estimated to be 45-50%. There is mild global hypokinesis of the left ventricle. Diastolic parameters suggest a relaxation abnormality of the left ventricle, consistent with probable normal filling pressures. Right Ventricle: The right ventricle is normal size. Right ventricular systolic function is at the lower limits of normal. Atria: The left atrium is moderately dilated. The right atrium is mildly dilated. The interatrial septum grossly appears intact with no obvious evidence for an atrial septal defect. Mitral Valve: The mitral valve is normal. There is no mitral valve stenosis. There is trace mitral regurgitation. Aortic Valve: The aortic valve is trileaflet. There is no aortic valve stenosis. No aortic regurgitation is present. Tricuspid Valve: The tricuspid valve is normal. There is no tricuspid stenosis. There is mild tricuspid regurgitation. The right ventricular systolic pressure is estimated to be at least 29.8 mmHg based on an estimated right atrial pressure of 3 mm Hg. Pulmonic Valve: The pulmonic valve is not well visualized. There is no pulmonic valvular stenosis. There is a trace or physiologic amount of pulmonic regurgitation. Great Vessels: The aortic root is normal size. The dimensions of the ascending aorta are normal. The IVC is of normal diameter and collapses greater than 50% with a sniff. This suggests a low right atrial pressure of 3 mm Hg. Pericardium/ Pleura There is no pericardial effusion. There is no pleural effusion. MMode/2D Measurements & Calculations LVIDd: 5.2 cm LVOT diam: 2.4 cm LVIDs: 4.1 cm Ao root diam: 3.0 cm IVSd: 0.78 cm asc Aorta Diam: 3.2 cm LVPWd: 1.0 cm LV garcia. diameter/BSA (cm/m^2): 2.6 LV sys. diameter/BSA (cm/m^2): 2.1 FS: 20.5 % LA A2 area: 24.7 cm2 RA long axis: 5.5 cm LA A4 area: 22.1 cm2 RA area: 16.9 cm2 LA length (vol): 5.9 cm RA vol: 43.9 ml LA vol: 78.5 ml RA : 22.1 ml/m2 LA vol index: 39.5 ml/m2 RVD1 (basal): 3.7 cm IVC diam: 2.1 cm RVD2 (mid): 3.0 cm TAPSE: 1.9 cm Doppler Measurements & Calculations Ao V2 max: 92.2 cm/sec LVOT Max Cornelio: 83.5 cm/sec Ao V2 mean: 72.7 cm/sec LV V1 max P.8 mmHg Ao V2 VTI: 23.5 cm LV V1 VTI: 21.2 cm Ao max P.4 mmHg Ao mean P.2 mmHg CHRIS(I,D): 4.1 cm2 MV E max cornelio: 65.6 cm/sec CHRIS(V,D): 4.1 cm2 MV A max cornelio: 71.5 cm/sec CHRIS indexed to BSA (cm^2/m^2): 2.0 MV E/A: 0.92 sev ratio: 0.90 Med Peak E' Cornelio: 7.8 cm/sec E/E' med: 8.5 Lat Peak E' Cornelio: 7.7 cm/sec E/E' lat: 8.5 E/e' average: 8.5 MV dec time: 0.18 sec TR max cornelio: 258.8 cm/sec TR max P.8 mmHg PA V2 max: 68.0 cm/sec SV(LVOT): 95.2 ml PA V2 mean: 49.3 cm/sec PA mean P.1 mmHg PA pr(Accel): 8.8 mmHg Reading Physician:09:28 AM
== END ==
PROVIDERS: PCP Family Medicine; Referring Provider Internal Medicine Cardiovascular Disease; Visit Provider Internal Medicine Cardiovascular Disease
DX: I07.1 Rheumatic tricuspid insufficiency (principal); I49.3 Ventricular premature depolarization
CPT/HCPCS: 93306

== ENCOUNTER → 2024-01-13 13:20 | Outpatient (CLI) | payer MEDICARE, OTHER, SELFPAY ==
[2021-09-11 20:36] VITALS: BMI 26.7
--- NOTE | 2024-01-13 13:22 | DI.CT.S_ITS ---
PROCEDURE: CT HEAD/BRAIN WO CON INDICATIONS: eval dementia TECHNIQUE: Noncontrast 4.5 mm thick angled axial sections acquired from the foramen magnum to the vertex, with coronal and sagittal reformats. For radiation dose reduction, the following was used: automated exposure control, adjustment of mA and/or kV according to patient size. COMPARISON: [facility], CT, CT HEAD/BRAIN WO CON, 04/06/2020, 12:36. FINDINGS: Image quality: Diagnostic. CSF spaces: Basal cisterns are patent. No extra-axial fluid collections. Ventricles are normal in size and shape. Brain: No midline shift. No intracranial masses or hemorrhage. No area of hypodensity in a large vascular distribution to suggest acute infarction. Periventricular hypodensity consistent with chronic microvascular ischemic change. Age-related parenchymal loss. Skull and face: Calvarium and visualized facial bones are intact, without suspicious lesions. Sinuses: Paranasal sinus mucosal thickening most pronounced in the maxillary sinuses. Not seen in 2020. Mastoids are clear. IMPRESSION: Findings of chronic microvascular ischemic disease. Similar compared to 2020. No acute intracranial abnormality. Paranasal sinusitis. Dictated by: Alexandre Boswell M.D. on 01/13/2024 at 14:26 Approved by: Alexandre Boswell M.D. on 01/13/2024 at 14:32
== END ==
LOC: CT 13:21
PROVIDERS: PCP Family Medicine; Referring Provider Family Medicine; Visit Provider Family Medicine
DX: F03.90 Unspecified dementia, unspecified severity, without behavioral disturbance, psychotic disturbance, mood disturbance, and anxiety (principal); R41.3 Other amnesia; J32.8 Other chronic sinusitis
CPT/HCPCS: 70450

== ENCOUNTER → 2024-03-04 09:38 | Outpatient (CLI) | payer MEDICARE, OTHER, SELFPAY ==
[2021-09-11 20:36] VITALS: BMI 26.7
--- NOTE | 2024-03-04 09:39 | DI.CT.S_ITS ---
PROCEDURE: CT ABDOMEN PELVIS W CON INDICATIONS: eval chronic diarrheas and weight loss TECHNIQUE: After the administration of intravenous contrast, axial sections acquired from the lung bases to the pubic symphysis. Coronal and sagittal reformats were performed. For radiation dose reduction, the following was used: automated exposure control, adjustment of mA and/or kV according to patient size. COMPARISON: [facility], CT, ABDOMEN/PELVIS WITH CONTRAST, 09/13/2016, 12:08. [facility], CT, ABDOMEN/PELVIS WITH CONTRAST, 04/02/2015, 20:35. FINDINGS: Image quality: Diagnostic. Lower Chest: No significant findings. ABDOMEN: Liver: No solid mass. Gallbladder: No radiopaque gallstones or wall thickening. Biliary ducts: No biliary dilation. Pancreas: No ductal dilation. Spleen: Size is within normal limits. Adrenal Glands: No adrenal nodules. Kidneys and Ureters: No hydronephrosis. No solid mass. No complex renal cystic lesion which requires follow up. Stomach and Bowel: Multiple diverticula are seen throughout the colon without acute inflammatory changes. Normal retrocecal appendix. Small bowel loops and stomach are unremarkable. Peritoneum: No abnormal intraperitoneal fluid. No free air. Ventral Wall: Small fat containing periumbilical hernia. Abdominal Nodes: No retroperitoneal or mesenteric adenopathy by size criteria. Vessels: Aorta and inferior vena cava are normal in size. PELVIS: Pelvic Organs: Prostate is enlarged. Bladder: Bladder is decompressed and not well evaluated. Pelvic Nodes: No enlarged lymph nodes. Miscellaneous: No inguinal hernias are seen. Bones: No aggressive osseous abnormality. IMPRESSION: 1. Colonic diverticulosis without signs of acute diverticulitis. 2. Prostatomegaly. Approved by: Nickolas Knight M.D. on 03/04/2024 at 16:18
[2024-03-04 10:02] LABS: Estimated Glomerular Filt Rate > 60 mL/min (>60)
== END ==
LOC: CT 09:39
PROVIDERS: Radiology Diagnostic Radiology; PCP Family Medicine; Referring Provider Family Medicine; Visit Provider Family Medicine
DX: K52.9 Noninfective gastroenteritis and colitis, unspecified (principal); R63.4 Abnormal weight loss; D64.9 Anemia, unspecified; K57.90 Diverticulosis of intestine, part unspecified, without perforation or abscess without bleeding; N40.0 Benign prostatic hyperplasia without lower urinary tract symptoms; K42.9 Umbilical hernia without obstruction or gangrene
CPT/HCPCS: 36415; 74177; 82565; Q9967

== ENCOUNTER → 2024-07-20 14:28 | Outpatient (CLI) | payer MEDICARE, OTHER, SELFPAY ==
[2021-09-11 20:36] VITALS: BMI 26.7
[2024-07-20 15:15] LABS: Influenza A - CEPHEID Flu A POSITIVE (NEGATIVE); Influenza B - CEPHEID Flu B NEGATIVE (NEGATIVE); Respiratory Syncytial Virus Negative (Negative)
[2024-07-20 15:34] LABS: COVID-19 CEPHEID 4-PLEX PCR Negative (Negative)
== END ==
PROVIDERS: PCP Family Medicine; Visit Provider Physician Assistant Surgical
DX: R05.1 Acute cough (principal)
CPT/HCPCS: 0241U

== ENCOUNTER → 2024-07-20 15:23 | Outpatient (CLI) | payer MEDICARE, OTHER, SELFPAY ==
[2021-09-11 20:36] VITALS: BMI 26.7
--- NOTE | 2024-07-20 15:25 | DI.RAD.S_ITS ---
PROCEDURE: XR CHEST 2V INDICATIONS: Cough, rhonchi, wheezes TECHNIQUE: 2 views of the chest were acquired. COMPARISON: [facility], CR, XR CHEST 1V, 09/11/2021, 15:37. FINDINGS: Surgical changes and devices: None. Lungs and pleura: Lungs are clear. No pleural effusions or pneumothorax. Mediastinum: Mediastinal contours are normal. Heart size is normal. Bones and chest wall: No suspicious bony abnormalities. Soft tissues appear unremarkable. IMPRESSION: No acute cardiopulmonary abnormality is seen. Approved by: Karel Clark M.D. on 07/20/2024 at 15:00
== END ==
LOC: RAD 15:25
PROVIDERS: PCP Family Medicine; Referring Provider Physician Assistant Surgical; Visit Provider Physician Assistant Surgical
DX: R05.1 Acute cough (principal)
CPT/HCPCS: 0241U; 71046

== ENCOUNTER → 2024-08-08 14:34 | Outpatient (CLI) | payer MEDICARE, OTHER, SELFPAY ==
[2021-09-11 20:36] VITALS: BMI 26.7
== END ==
LOC: LAB 14:36
PROVIDERS: PCP Family Medicine; Referring Provider Family Medicine; Visit Provider Family Medicine
DX: R19.7 Diarrhea, unspecified (principal)
CPT/HCPCS: 87045

== ENCOUNTER → 2025-03-27 12:12 | Outpatient (CLI) | payer MEDICARE, OTHER, SELFPAY ==
[2021-09-11 20:36] VITALS: BMI 26.7
[2025-03-27 13:23] LABS: Add Manual Diff / Slide Review NO; Hematocrit 39.8 % (41-53); Hemoglobin 13.4 g/dL (13.5-17.5); Lymphocytes Absolute Auto 1000 /uL (1100-4500); Mean Corpuscular HGB Conc 33.7 % (30-36); Mean Corpuscular Hemoglobin 30.1 PG (26-34); Mean Corpuscular Volume 89.2 fL (80-100); Platelet Count 190 X10^3/uL (150-400)
[2025-03-27 13:30] LABS: Hemoglobin A1C% w Est Avg Glu 6.5 % (4.0-6.0)
[2025-03-27 13:47] LABS: HEMOLYSIS < 15 (0-50); Iron 73 ug/dL (49-181)
[2025-03-27 13:49] LABS: Alanine Aminotransferase 34 IU/L (<50); Albumin 4.2 g/dL (3.5-5.0); Albumin Globulin Ratio 1.4 (1.0-2.8); Alkaline Phosphatase 103 U/L (38-126); Blood Urea Nitrogen 22 mg/dL (9-20); Calcium 9.3 mg/dL (8.4-10.2); Carbon Dioxide 27 mmol/L (22-32); Chloride 104 mmol/L (98-107); Estimated Glomerular Filt Rate > 60 mL/min (>60); Globulin 3.1 g/dL (1.7-4.1); Glucose 112 mg/dL (70-99); HEMOLYSIS < 15 (0-50); Potassium 4.3 mmol/L (3.4-5.1); Sodium 138 mmol/L (137-145); Total Protein 7.3 g/dL (6.3-8.2)
[2025-03-27 14:02] LABS: Percent Iron Saturation 25 % (20-50); Total Iron Binding Capacity 295 ug/dL (261-462); Transferrin 253 mg/dL (206-381)
[2025-03-27 14:18] LABS: TSH w/ Reflex to FT4 1.42 uIU/mL (0.47-4.68)
[2025-03-27 14:19] LABS: Prostate Specific Antigen 0.713 ng/mL (0.10-4.00)
[2025-03-27 14:37] LABS: Vitamin B12 605 pg/mL (239-931)
== END ==
PROVIDERS: PCP Family Medicine; Referring Provider Family Medicine; Visit Provider Family Medicine
DX: I10 Essential (primary) hypertension (principal); R73.03 Prediabetes; E78.2 Mixed hyperlipidemia; K52.9 Noninfective gastroenteritis and colitis, unspecified; D64.9 Anemia, unspecified; R41.89 Other symptoms and signs involving cognitive functions and awareness
CPT/HCPCS: 36415; 80053; 82607; 83036; 83540; 83550; 84153; 84443; 85025